=== PATIENT | female | born 1985 | race Two or more races ===

== ENCOUNTER 2017-11-16 10:35 | Emergency (ER) | payer MEDICAID ==
[~2017-11-16] VITALS: Ht 167.6 cm; Wt 105.2 kg
[~2017-11-16 10:35] MED LIST: ALBUAER3 IN; AMOX-263 PO; IBUP800T24 PO; METH4PAK PO; NORPTMEDS CO; PRED-188 PO; PSEU120T2 PO; [UNRECOGNIZED DRUG - CODE] PO
[2017-11-16 11:41] LABS: Basophils # (auto) 0 uL; Basophils % (auto) 0.2 % (0.0-2.0); Eosinophils # (auto) 0.1 uL; Eosinophils % (auto) 0.8 % (0.0-7.0); Hematocrit 40.6 % (36.0-46.0); Hemoglobin 13.8 g/dL (12.2-16.2); Lymphocytes # (auto) 1.7 uL; Lymphocytes % (auto) 22.6 % (10.0-50.0); Mean Corpuscular Hemoglobin 29.6 pg (28.0-32.0); Mean Corpuscular Volume 87.1 fL (80.0-100.0); Monocytes # (auto) 0.3 uL; Monocytes % (auto) 4.3 % (0.0-12.0); Neutrophils # (auto) 5.5 uL; Neutrophils % (auto) 72.1 % (37.0-80.0); Nucleated Red Blood Cells % 0.1 %; Platelet Count (auto) 188 10^3/uL (140-450); Red Blood Cells 4.66 10^6/uL (4.0-5.20); Red Cell Distribution Width 14.6 % (11.8-14.3); White Blood Cell 7.6 10^3/uL (4.4-10.8)
[2017-11-16 11:44] LABS: Urine Bacteria NONE SEEN /hpf (None Seen); Urine Blood Negative /uL (Negative); Urine Mucus FEW (None Seen); Urine Specific Gravity 1.026 (1.001-1.035); Urine WBC 2 /hpf (0 - 5)
[2017-11-16 11:52] LABS: Albumin 3.4 g/dL (3.4-5.0); BUN/Creatinine Ratio 7.5; Bilirubin, Total 0.6 mg/dL (0.2-1.0); Calcium 8.9 mg/dL (8.5-10.1); Potassium 3.8 mmol/L (3.5-5.1); Total Protein 7.8 g/dL (6.4-8.2)
[2017-11-16 13:56] VITALS: BP 145/76
== END 2017-11-16 14:00 | disposition home or self-care (01) ==
LOC: ER 10:35
DX: O20.0 Threatened abortion (principal); Z3A.10 10 weeks gestation of pregnancy
CPT/HCPCS: 36415; 76801; 80053; 81001; 84702; 85025

== ENCOUNTER 2017-12-08 23:43 | Emergency (ER) | payer MEDICAID ==
[~2017-12-08] VITALS: Ht 167.6 cm; Wt 101.2 kg
[2017-12-09 01:16] LABS: Urine Amorphous Crystal FEW /hpf (None Seen); Urine Bacteria MANY /hpf (None Seen); Urine Blood Negative /uL (Negative); Urine Specific Gravity 1.028 (1.001-1.035); Urine WBC 183 /hpf (0 - 5); Urine WBC Clumps PRESENT /hpf (None Seen)
[2017-12-09 02:27] LABS: Basophils # (auto) 0 uL; Basophils % (auto) 0.5 % (0.0-2.0); Eosinophils # (auto) 0.1 uL; Eosinophils % (auto) 1.3 % (0.0-7.0); Hematocrit 36.7 % (36.0-46.0); Hemoglobin 12.8 g/dL (12.2-16.2); Lymphocytes # (auto) 1.4 uL; Lymphocytes % (auto) 17.2 % (10.0-50.0); Mean Corpuscular Hemoglobin 30.4 pg (28.0-32.0); Mean Corpuscular Hgb Conc. 34.8 g/dL (32.0-36.0); Mean Corpuscular Volume 87.2 fL (80.0-100.0); Monocytes # (auto) 0.5 uL; Monocytes % (auto) 6.1 % (0.0-12.0); Neutrophils # (auto) 6.2 uL; Neutrophils % (auto) 74.9 % (37.0-80.0); Platelet Count (auto) 177 10^3/uL (140-450); Red Blood Cells 4.21 10^6/uL (4.0-5.20); Red Cell Distribution Width 14.7 % (11.8-14.3); White Blood Cell 8.3 10^3/uL (4.4-10.8)
[2017-12-09 02:46] LABS: Albumin 3.3 g/dL (3.4-5.0); Calcium 8.7 mg/dL (8.5-10.1); Magnesium 2.1 mg/dL (1.6-2.6); Potassium 3.7 mmol/L (3.5-5.1)
[2017-12-09 02:49] LABS: Bilirubin, Total 0.9 mg/dL (0.2-1.0); Total Protein 7.5 g/dL (6.4-8.2)
[2017-12-09] MEDS ORDERED: SODIUM CHLORIDE 0.9% 1,000 ML IV ONE (06:00)
[2017-12-09] MEDS ORDERED: SODIUM CHLORIDE 0.9% 1,000 ML IVB ONE (06:56)
[2017-12-09] MEDS ORDERED: cefTRIAXone 1GM/10ml IVPUSH 10 ML IV ONE (07:00)
[2017-12-09] MEDS ORDERED: ONDANSETRON HCL 4 MG/2 ML VIAL IV ONE (07:00)
[2017-12-09 10:50] VITALS: BP 137/58
== END 2017-12-09 11:19 | disposition home or self-care (01) ==
LOC: ER 23:52
DX: O23.42 Unspecified infection of urinary tract in pregnancy, second trimester (principal); O21.9 Vomiting of pregnancy, unspecified; Z79.899 Other long term (current) drug therapy; Z3A.12 12 weeks gestation of pregnancy
CPT/HCPCS: 36415; 76801; 80053; 81001; 82150; 83690; 83735; 84702; 85025; 96361; 96374; 96375; 99285; J2405; J7030

== ENCOUNTER 2022-07-21 00:52 | Emergency (ER) | payer MEDICAID ==
[~2022-07-21] VITALS: Ht 167.6 cm; Wt 98.5 kg
[~2022-07-21 00:52] MED LIST changes: -IBUP800T24 PO; +IBUP800T27 PO
[2022-07-21 01:16] VITALS: BP 170/65
[2022-07-21 02:22] LABS: Basophils # (auto) 0.1 10 ^3/uL (0-0.2); Basophils % (auto) 1.1 % (0.0-2.0); Eosinophils # (auto) 0.1 10 ^3/uL (0-0.8); Eosinophils % (auto) 1.3 % (0.0-7.0); Hematocrit 37.1 % (36.0-46.0); Hemoglobin 12.8 g/dL (12.2-16.2); Lymphocytes # (auto) 2.4 10 ^3/uL (0.4-5.4); Lymphocytes % (auto) 37.8 % (10.0-50.0); Mean Corpuscular Hemoglobin 28.9 pg (28.0-32.0); Mean Corpuscular Hgb Conc. 34.6 g/dL (32.0-36.0); Mean Corpuscular Volume 83.5 fL (80.0-100.0); Monocytes # (auto) 0.4 10 ^3/uL (0-1.3); Monocytes % (auto) 5.9 % (0.0-12.0); Neutrophils # (auto) 3.4 10 ^3/uL (1.6-8.6); Neutrophils % (auto) 53.9 % (37.0-80.0); Nucleated Red Blood Cells % 0.3 %; Red Blood Cells 4.44 10^6/uL (4.0-5.20); Red Cell Distribution Width 15.9 % (11.8-14.3); White Blood Cell 6.3 10^3/uL (4.4-10.8)
[2022-07-21 02:43] LABS: Albumin 3.8 g/dL (3.4-5.0); Calcium 8.7 mg/dL (8.5-10.1); Potassium 4.2 mmol/L (3.5-5.1)
[2022-07-21 02:46] LABS: Bilirubin, Total 0.7 mg/dL (0.2-1.0); Total Protein 7.7 g/dL (6.4-8.2)
== END 2022-07-21 06:19 | disposition left against medical advice (07) ==
LOC: ER 00:52
DX: R51.9 Headache, unspecified (principal); I10 Essential (primary) hypertension; Z53.21 Procedure and treatment not carried out due to patient leaving prior to being seen by health care provider
CPT/HCPCS: 36415; 80053; 85025

== ENCOUNTER 2025-10-11 01:22 | Inpatient (IN) | payer MEDICAID, OTHER ==
[~2025-10-11] VITALS: Ht 167.6 cm; Wt 109.0 kg
[~2025-10-11 01:22] MED LIST changes: +IBUP-1456 PO; -IBUP800T27 PO
[2025-10-11] MEDS: MORPHINE SULFATE 4 MG/ML SYR/VIAL IV ONE (01:45)
[2025-10-11 02:03] LABS: Hematocrit 39.2 % (36.0-46.0); Hemoglobin 12.7 g/dL (12.2-16.2); Mean Corpuscular Hemoglobin 25.4 pg (28.0-32.0); Mean Corpuscular Volume 78.4 fL (80.0-100.0); Nucleated Red Blood Cells % 0.1 %
--- NOTE | 2025-10-11 02:13 | ED.PDOC ---
GI ASSESSMENT HPI Comments 40-year-old female who came to ER for abdominal pain. She is status post gastric sleeve, for eating spicy food earlier she started having burning epigastric abdominal pain radiating to the back, persistent, take her to come to the emergency room Chief Complaint: Abdominal Pain Time Seen by MD: 02:13 Reviewed Notes: Nurses Notes Allergies: Coded Allergies: NO KNOWN ALLERGIES (Unverified , 10/13/13) Home Meds Active Scripts Prednisone (PREDNISONE) 20 Mg Tb, 60 MG PO DAILY, #15 TAB Prov:MARIA BARROW N.P. 12/01/13 Albuterol Sulfate (VENTOLIN MDI) 90 Mcg Ih, 2 PUFF IN Q6HP PRN, #1 AER Prov:MARIA BARROW N.P. 12/01/13 Clarithromycin (Biaxin) 500 Mg Tab, 500 MG PO BID, #20 TAB Prov:MARIA BARROW N.P. 12/01/13 Ibuprofen (Ibuprofen) 800 Mg Tab, 800 MG PO Q6HP PRN, #60 MG Prov:MARIA BARROW N.P. 10/13/13 Methylprednisolone (Medrol Dosepak) 4 Mg Giovanni, 4 MG PO UD, #1 PACK Prov:MARIA BARROW N.P. 10/13/13 Pseudoephedrine (Sudafed 12 Hour) 120 Mg Tab, 120 MG PO BID, #30 TAB Prov:MARIA BARROW N.P. 10/13/13 Amoxicillin & Pot Clavulanate (Augmentin) 875 Mg Tab, 875 MG PO BID, #20 TAB Prov:MARIA BARROW N.P. 10/13/13 Reported Medications No Reported Medication (NO REPORTED MEDICATION) Ea, 0 CO UNK, EA PATIENT HAS NO REPORTED MEDICATIONS 12/01/13 Information Source: Patient Mode of Arrival: EMS Past Medical History PAST MEDICAL HISTORY: Denies Surgical History (Other): Gastric sleeve [employer] History: Denies all [employer] Hx Family History Family History: Reviewed,noncontributory to illness Social History Smoker: Non-Smoker Alcohol: Denies ETOH Use Drugs: Denies Drug Use Lives In: Home Constitutional: denies: chills, diaphoresis, fatigue, fever, malaise, sweats, weakness, others EENTM: denies: blurred vision, double vision, ear bleeding, ear discharge, ear drainage, ear pain, ear ringing, eye pain, eye redness, hearing loss, mouth pain, mouth swelling, nasal discharge, nose bleeding, nose congestion, nose pain, photophobia, tearing, throat pain, throat swelling, voice changes, others Respiratory: denies: cough, hemoptysis, orthopnea, SOB at rest, shortness of breath, SOB with excertion, stridor, wheezing, others Cardiovascular: denies: chest pain, dizzy spells, diaphoresis, Dyspnea on exertion, edema, irregular heart beat, left arm pain, lightheadedness, palpitations, PND, syncope, others Gastrointestinal: reports: abdominal pain; denies: abdomen distended, blood streaked bowels, constipated, diarrhea, dysphagia, difficulty swallowing, h ematemesis, melena, nausea, poor appetite, poor fluid intake, rectal bleeding, rectal pain, vomiting, others Genitourinary: denies: abnormal vagina bleeding, burning, dyspareunia, dysuria, flank pain, frequency, hematuria, incontinence, pain, , vagina discharge, urgency, others Neurological: denies: dizziness, fainting, headache, left sided numbness, left sided weakness, numbness, paresthesia, pre-existing deficit, right sided numbness, right sided weakness, seizure, speech problems, tingling, tremors, weakness, others Musculoskeletal: denies: back pain, gout, joint pain, joint swelling, muscle pain, muscle stiffness, neck pain, others Integumetry: denies: bruises, change in color, change in hair/nails, dryness, laceration, lesions, lumps, rash, wounds, others Allergic/Immunocompromised: denies: Difficulty Healing, Frequent Infections, Hives, Itching, others Hematologic/Lymphatic: denies: anemia, blood clots, easy bleeding, easy bruising, swollen glands, others Endocrine: denies: excessive hunger, excessive sweating, excessive thirst, excessive urination, flushing, intolerance to cold, intolerance to heat, unexplained weight gain, unexplained weight loss, others Psychiatric: denies: anxiety, bipolar disorder, depression, hopeless, panic disorder, schizophrenia, sleepless, suicidal, others Physical Exam General Appearance: No Apparent Distress, Normal HEENT: Normal ENT Inspection, Pharynx Normal, TMs Normal Neck: Full Range of Motion, Non-Tender, Normal, Normal Inspection Respiratory: Chest Non-Tender, Lungs Clear, No Accessory Muscle Use, No Respiratory Distress, Normal Breath Sounds Cardiovascular: No Edema, No JVD, No Murmur, No Gallop, Normal Peripheral Pulses, Regular Rate/Rhythm Breast Exam: Deferred Gastrointestinal: Epigastric, No Organomegaly, No Pulsatile Mass, Normal Bowel Sounds, Soft, Tenderness Genitalia: Deferred Pelvic: Deferred Rectal: Deferred Extremities: No calf tenderness, Normal capillary refill, Normal inspection, Normal range of motion, Non-tender, No pedal edema Musculoskeletal : Apperance: Normal Neurologic: Alert, harbor pilot II-XII nml as Tested, No Motor Deficits, Normal Affect, Normal Mood, No Sensory Deficits Cerebellar Function: Normal Reflexes: Normal Skin: Dry, Normal Color, Warm Lymphatic: No Adenopathy Was a procedure done? Was a procedure done?: No GI differential Dx Differential Diagnosis: Cholecystitis, Gastritis/PUD, Gastroenteritis, Pancreatitis, UTI X-Ray, Labs, Meds, VS Vital Signs Date Time Temp Pulse Resp B/P (MAP) Pulse Ox O2 Delivery O2 Flow Rate FiO2 10/11/25 01:22 98.3 69 18 148/79 96 98.3 Lab Test 10/11/25 04:33 10/11/25 01:56 Range/Units Urine Color Yellow Yellow Urine Clarity Turbid H Clear Urine pH 8.0 5.0-9.0 Urine Specific [place] 1.027 1.001-1.035 Urine Protein Trace H Negative Urine Ketones 1+ H Negative Urine Blood Negative Negative /uL Urine Nitrite Negative Negative Urine Bilirubin Negative Negative Urine Urobilinogen 8 H Negative mg/dL Urine Leukocyte Esterase Negative Negative /uL Urine RBC 1 0 - 4 /hpf Urine Microscopic WBC < 1 0-5 /HPF Urine Squamous Epithelial Cells Few <5 /hpf Urine Amorphous Crystals Few None Seen /hpf Urine Bacteria None seen None Seen /hpf Urine Mucus Few None Seen Urine Yeast (Budding) Moderate None Seen /hpf Urine Glucose Normal Normal mg/dL Urine Test Negative Negative White Blood Count 8.9 4.4-10.8 10^3/uL Red Blood Count 5.00 4.0-5.20 10^6/uL Hemoglobin 12.7 12.2-16.2 g/dL Hematocrit 39.2 36.0-46.0 % Mean Corpuscular Volume 78.4 L 80.0-100.0 fL Mean Corpuscular Hemoglobin 25.4 L 28.0-32.0 pg Mean Corpuscular Hemoglobin Concent 32.4 32.0-36.0 g/dL Red Cell Distribution Width 16.0 H 11.8-14.3 % Platelet Count 232 140-450 10^3/uL Mean Platelet Volume 9.2 6.9-10.8 fL Neutrophils (%) (Auto) 82.2 H 37.0-80.0 % Lymphocytes (%) (Auto) 13.2 10.0-50.0 % Monocytes (%) (Auto) 4.2 0.0-12.0 % Eosinophils (%) (Auto) 0.2 0.0-7.0 % Basophils (%) (Auto) 0.2 0.0-2.0 % Neutrophils # (Auto) 7.3 1.6-8.6 10 ^3/uL Lymphocytes # (Auto) 1.2 0.4-5.4 10 ^3/uL Monocytes # (Auto) 0.4 0-1.3 10 ^3/uL Eosinophils # (Auto) 0 0-0.8 10 ^3/uL Basophils # (Auto) 0 0-0.2 10 ^3/uL Nucleated Red Blood Cells 0.1 % Sodium Level 140 136-145 mmol/L Potassium Level 3.8 3.5-5.1 mmol/L Chloride Level 108 H 98-107 mmol/L Carbon Dioxide Level 20 20-31 mmol/L Anion Gap 12 5-15 Blood Urea Nitrogen 13 9-23 mg/dL Creatinine 0.73 0.550-1.02 mg/dL Glomerular Filtration Rate Calc 107 >90 mL/min BUN/Creatinine Ratio 17.8 10.0-20.0 Serum Glucose 120 H 74-106 mg/dL Calcium Level 9.6 8.7-10.4 mg/dL Total Bilirubin 1.4 H 0.2-1.0 mg/dL Aspartate Amino Transferase (AST) 250 H 13-40 U/L Alanine Aminotransferase (ALT) 170 H 7-40 U/L Alkaline Phosphatase 234 H 46-116 U/L Total Protein 8.1 5.7-8.2 g/dL Albumin 4.8 3.2-4.8 g/dL Lipase 26 12-53 U/L Current Medications Medications (Trade) Dose Ordered Sig/Sun Route Start Time Stop Time Status Last Admin Ondansetron HCl (Zofran) 4 mg ONCE ONCE IV 10/11/25 01:45 10/11/25 01:46 DC 10/11/25 03:58 Sodium Chloride 1,000 ml @ 1,000 mls/hr Q1H ONCE IVB 10/11/25 01:45 10/11/25 02:44 DC 10/11/25 04:11 Famotidine (Pepcid Injection) 20 mg ONCE ONCE IV 10/11/25 01:45 10/11/25 01:46 DC 10/11/25 03:58 Time of 1ST Reevaluation: 02:11 Reevaluation 1ST: Unchanged Patient Education/Counseling: Diagnosis, Treatment Family Education/Counseling: No Family Present SEPSIS Sepsis Screen Date sepsis recognized/suspect: Oct 11, 2025 Time Sepsis recognized/suspect: 012 Recent Procedure: No On Antibiotic Therapy: No Respiratory Rate >20: No Heart Rate >90: No Temp<36 C (96.8 F) or >38.3 C: No SBP <90 or MAP <65 mmHG: No New Acute Mental Status Change: No Is the patient on CPAP, BIPAP,: No Physician Orders Ct Ab Pel With Iv Con Only (10/11/25 01:44) Gallbladder (10/11/25 05:57) Vital Signs Date Time Temp Pulse Resp B/P (MAP) Pulse Ox O2 Delivery O2 Flow Rate FiO2 10/11/25 01:22 98.3 69 18 148/79 96 98.3 Laboratory Tests Test 10/11/25 01:56 White Blood Count 8.9 10^3/uL (4.4-10.8) Medications Medications Dose Ordered Sig/Sun Route Start Time Stop Time Status Last Admin Dose Admin Famotidine 20 mg ONCE ONCE IV 10/11/25 01:45 10/11/25 01:46 DC 10/11/25 03:58 Ondansetron HCl 4 mg ONCE ONCE IV 10/11/25 01:45 10/11/25 01:46 DC 10/11/25 03:58 Sodium Chloride 1,000 ml @ 1,000 mls/hr Q1H ONCE IVB 10/11/25 01:45 10/11/25 02:44 DC 10/11/25 04:11 Departure 1 Departure Time of Disposition: 07:00 Impression: Primary Impression: Intractable abdominal pain Additional Impression: H/O gastric sleeve Disposition: 09 ADMITTED INPATIENT Admit to: Med Surg Condition: Guarded Comments 40-year-old female with a intractable abdominal pain. She did have a gastric sleeve surgery in [facility]. I ordered a CT of the abdomen and pelvis and it looks like there might be a gallstone at the neck of the gallbladder. LFTs are elevated. Patient is still having pain. I ordered a gallbladder ultrasound. Periods patient will need to be admitted for supportive care and further workup. Critical Care Note Critical Care Time?: Yes (35 min-critical care time only) Critical care comment: Total critical care time: Approximately 36 minutes Due to a high probability of clinically significant, life threatening deterioration, the patient required my highest level of preparedness to intervene emergently and I personally spent this critical care time directly and personally managing the patient. This critical care time included obtaining a history; examining the patient; pulse oximetry; ordering and review of studies; arranging urgent treatment with development of a management plan; evaluation of patient's response to treatment; frequent reassessment; and, discussions with other providers. This critical care time was performed to assess and manage the high probability of imminent, life-threatening deterioration that could result in multi-organ failure. It was exclusive of separately billable procedures and treating other patients. Stability Stability form required: No Heart Score Heart Score: Heart Score Response (Comments) Value History N/A 0 EKG N/A 0 Age N/A 0 Risk Factors N/A 0 Troponin N/A 0 Total 0 I personally scribed for AL BISHOP MD ([email or web address]) on 10/11/25 at 02:13. Electronically submitted by Mason Benitez ([email or web address]). AL BISHOP MD Oct 11, 2025 02:13
[2025-10-11 02:20] LABS: Albumin 4.8 g/dL (3.2-4.8); Anion Gap 12 (5-15); BUN/Creatinine Ratio 17.8 (10.0-20.0); Blood Urea Nitrogen 13 mg/dL (9-23); Calcium 9.6 mg/dL (8.7-10.4); Carbon Dioxide 20 mmol/L (20-31); Lipase 26 U/L (12-53); Potassium 3.8 mmol/L (3.5-5.1); Sodium 140 mmol/L (136-145); Total Protein 8.1 g/dL (5.7-8.2)
[2025-10-11 02:47] LABS: Alanine Aminotransferase 170 U/L (7-40); Alkaline Phosphatase 234 U/L (46-116); Bilirubin, Total 1.4 mg/dL (0.2-1.0); Chloride 108 mmol/L (98-107); Glucose 120 mg/dL (74-106)
[2025-10-11] MEDS: ONDANSETRON HCL 4 MG/2 ML VIAL IV ONE (03:58)
[2025-10-11] MEDS: FAMOTIDINE (10MG/ML) 2ML VL IV ONE (03:58)
[2025-10-11] MEDS: SODIUM CHLORIDE 0.9% 1,000 ML IVB ONE (04:11)
[2025-10-11 05:27] LABS: Urine Amorphous Crystal FEW /hpf (None Seen); Urine Budding Yeast MODERATE /hpf (None Seen); Urine Protein, UAD TRACE (Negative)
[2025-10-11] MEDS: IOHEXOL 300 MG/ML 100ML BOTTLE IJ ONE (06:01)
--- NOTE | 2025-10-11 07:12 | DVH ---
EXAM: CT CT AB PEL WITH IV CON ONLY History: abd pain COMPARISON: None TECHNIQUE: Multidetector spiral CT of the abdomen and pelvis was performed from lung bases to pubic symphysis. Intravenous contrast was administered during this examination. Portal venous imaging was obtained. Axial, coronal and sagittal multiplanar reformats were performed by the technologist on a separate workstation. Radiation Dose : 1. Abdomen/Pelvis: CTDIvol 26.21mGy, DLP 1625.37 mGy*cm. CONTRAST: Type of contrast: Omnipaque Contrast injected: 100ml FINDINGS: Lung Bases: No acute or significant lung base finding. Normal heart size. No pleural or pericardial effusion. Liver: Hepatomegaly measuring up to 21 cm. Gallbladder and Biliary Tree: Cholelithiasis with small amount of pericholecystic fluid. Spleen: Unremarkable Pancreas: The pancreas is normal in appearance without focal lesions or abnormal enhancement. Adrenal Glands: Unremarkable Kidneys: No hydronephrosis. Bladder: Unremarkable Bowel: Postsurgical changes are seen around the stomach. Small bowel and colon are normal in caliber and distribution. Normal appendix is visualized in the right lower quadrant without findings of appendicitis. Ascites: Absent Lymphadenopathy: No mesenteric, retroperitoneal or periportal lymphadenopathy. Abdominal Wall and Mesentery: Trace fat containing umbilical hernia. Vasculature: The visualized abdominal aorta is normal in size and caliber. Abdominal and pelvic vessels demonstrate normal enhancement. Pelvic Organs: Unremarkable Musculoskeletal: No aggressive focal bony lesions, acute fractures or dislocation. IMPRESSION: 1. Cholelithiasis with small amount of pericholecystic fluid. Recommend correlation with right upper quadrant ultrasound. 2. Postsurgical changes are seen around the stomach. Radiation optimization: All CT scans at this facility use at least one of these dose optimization techniques: automated exposure control mA and/or kV adjustment per patient size (includes targeted exams where dose is matched to clinical indication) or iterative reconstruction.
--- NOTE | 2025-10-11 08:42 | DVH ---
EXAM: US GALLBLADDER HISTORY: RUQ pain COMPARISON: None TECHNIQUE: Multiple longitudinal and transverse sonographic images of the abdomen were obtained. Doppler was applied as indicated. FINDINGS: [PANCREAS]: The visualized portions of the pancreas are unremarkable. [AORTA]: Normal [LIVER]: 16.6 cm. increased echogenicity. There is no focal hepatic mass lesion detected. [GALLBLADDER]: Gallbladder wall measures 1.1 cm. There is no gallbladder sludge or shadowing gallstone. There is no sonographic Terry sign. [BILIARY TREE]: Common bile duct not well visualized. no intrahepatic biliary ductal dilatation. [ASCITES]: No free fluid is demonstrated. [VESSELS]: The main portal vein is patent on color Doppler evaluation. The inferior vena cava is patent on color Doppler evaluation. [RIGHT KIDNEY]: 10.6 cm. normal cortical echogenicity and normal contour. No hydronephrosis. IMPRESSION: 1. Heterogeneously echogenic liver, which is a nonspecific finding and may represent hepatic steatosis and/or other underlying hepatocellular pathology. 2. Edematous gallbladder wall thickening with intramural wall edema of indeterminate etiology. Consider follow up CT for further evaluation.
[2025-10-11] MEDS ORDERED: DOCUSATE SOD 100 MG CAP PO PRN (09:30)
[2025-10-11] MEDS ORDERED: NITROGLYCERIN 0.4 MG SL TAB SL PRN (09:30)
[2025-10-11] MEDS ORDERED: TEMAZEPAM 15 MG CAP PO PRN (09:30)
[2025-10-11] MEDS ORDERED: MORPHINE SULFATE 4 MG/ML SYR/VIAL IV PRN (09:45)
[2025-10-11] MEDS: PIPERACILLIN-TAZOB 3.375GM 100 ML IV ONE ×3 (09:59→23:41)
[2025-10-11] MEDS: PANTOPRAZOLE 40 MG/10 ML VIAL INJ IV ONE (09:59)
[2025-10-11 11:33] VITALS: PULSE 70; RESP 18; O2SAT 98
[2025-10-11] MEDS: SODIUM CHLORIDE 0.9% 1,000 ML IV SCH (11:39)
[2025-10-11] MEDS: PIPERACILLIN-TAZOB 3.375GM 100 ML IV SCH (12:32)
--- NOTE | 2025-10-11 12:57 | DVHINCON2 ---
Consultation - Surgical Date Seen: Oct 11, 2025 Referring Physician Reason for Consultation Acute cholecystitis History of Present Illness History of Present Illness Mrs. Chua is a 40-year-old female who presents to the hospital with epigastric and right upper quadrant pain that started yesterday at 7:00 p.m.. Pain has continued to get worse and decided to come to the ED, since arrival pain has subsided a bit. Pain is associated with nausea and vomiting. States that this has never happened to her before. Denies fevers, chills, changes in urinary or stooling habits, acholic stools. Past Medical/Surgical History Past Medical/Surgical History PMH cholelithiasis PSH gastric sleeve on July 31, 2025, x2 Family and Social History Family and Social History Family history noncontributory ETOH T Ob drugs denies Allergies and medications Allergies: Coded Allergies: NO KNOWN ALLERGIES (Unverified , 10/13/13) Home Meds Active Scripts Prednisone (PREDNISONE) 20 Mg Tb, 60 MG PO DAILY, #15 TAB Prov:MARIA BARROW N.P. 12/01/13 Albuterol Sulfate (VENTOLIN MDI) 90 Mcg Ih, 2 PUFF IN Q6HP PRN, #1 AER Prov:MARIA BARROW N.P. 12/01/13 Clarithromycin (Biaxin) 500 Mg Tab, 500 MG PO BID, #20 TAB Prov:MARIA BARROW N.P. 12/01/13 Ibuprofen (Ibuprofen) 800 Mg Tab, 800 MG PO Q6HP PRN, #60 MG Prov:MARIA BARROW N.P. 10/13/13 Methylprednisolone (Medrol Dosepak) 4 Mg Giovanni, 4 MG PO UD, #1 PACK Prov:MARIA BARROW N.P. 10/13/13 Pseudoephedrine (Sudafed 12 Hour) 120 Mg Tab, 120 MG PO BID, #30 TAB Prov:MARIA BARROW N.P. 10/13/13 Amoxicillin & Pot Clavulanate (Augmentin) 875 Mg Tab, 875 MG PO BID, #20 TAB Prov:MARIA BARROW N.P. 10/13/13 Reported Medications No Reported Medication (NO REPORTED MEDICATION) Ea, 0 CO UNK, EA PATIENT HAS NO REPORTED MEDICATIONS 12/01/13 Review of systems Review of Systems: Deferred Examination Vital signs Vital Signs Date Time Temp Pulse Resp B/P (MAP) Pulse Ox O2 Delivery O2 Flow Rate FiO2 10/11/25 11:33 98.3 70 18 136/71 (92) 98 98.3 10/11/25 11:33 Room Air* 0 21 Medications Current Medications Medications (Trade) Dose Ordered Sig/Sun Route PRN Reason Start Time Stop Time Status Last Admin Sodium Chloride 1,000 ml @ 120 mls/hr Q8H20M IV 10/11/25 09:30 10/11/25 11:39 Temazepam (Restoril) 15 mg QHSP PRN PO FOR INSOMNIA 10/11/25 09:30 Ondansetron HCl (Zofran) 4 mg Q4HP PRN IV NAUSEA / VOMITING 10/11/25 09:30 Docusate Sodium (Colace Capsule) 100 mg BIDPRN PRN PO FOR CONSTIPATION 10/11/25 09:30 Morphine Sulfate 2 mg Q4HPRN PRN IV SEVERE PAIN (7-10 PAIN SCALE) 10/11/25 09:45 Nitroglycerin (Ntrostat Sublingual) 0.4 mg Q5MINP PRN SL FOR CHEST PAIN 10/11/25 09:30 Piperacillin Sod/ Tazobactam Sod 100 ml @ 25 mls/hr Q6HR IV 10/11/25 12:00 10/11/25 12:32 Pantoprazole Sodium (Protonix) 40 mg DAILY IV 10/12/25 10:00 Laboratory Labs Test 10/11/25 04:33 10/11/25 01:56 Range/Units Urine Color Yellow Yellow Urine Clarity Turbid H Clear Urine pH 8.0 5.0-9.0 Urine Specific [place] 1.027 1.001-1.035 Urine Protein Trace H Negative Urine Ketones 1+ H Negative Urine Blood Negative Negative /uL Urine Nitrite Negative Negative Urine Bilirubin Negative Negative Urine Urobilinogen 8 H Negative mg/dL Urine Leukocyte Esterase Negative Negative /uL Urine RBC 1 0 - 4 /hpf Urine Microscopic WBC < 1 0-5 /HPF Urine Squamous Epithelial Cells Few <5 /hpf Urine Amorphous Crystals Few None Seen /hpf Urine Bacteria None seen None Seen /hpf Urine Mucus Few None Seen Urine Yeast (Budding) Moderate None Seen /hpf Urine Glucose Normal Normal mg/dL Urine Test Negative Negative White Blood Count 8.9 4.4-10.8 10^3/uL Red Blood Count 5.00 4.0-5.20 10^6/uL Hemoglobin 12.7 12.2-16.2 g/dL Hematocrit 39.2 36.0-46.0 % Mean Corpuscular Volume 78.4 L 80.0-100.0 fL Mean Corpuscular Hemoglobin 25.4 L 28.0-32.0 pg Mean Corpuscular Hemoglobin Concent 32.4 32.0-36.0 g/dL Red Cell Distribution Width 16.0 H 11.8-14.3 % Platelet Count 232 140-450 10^3/uL Mean Platelet Volume 9.2 6.9-10.8 fL Neutrophils (%) (Auto) 82.2 H 37.0-80.0 % Lymphocytes (%) (Auto) 13.2 10.0-50.0 % Monocytes (%) (Auto) 4.2 0.0-12.0 % Eosinophils (%) (Auto) 0.2 0.0-7.0 % Basophils (%) (Auto) 0.2 0.0-2.0 % Neutrophils # (Auto) 7.3 1.6-8.6 10 ^3/uL Lymphocytes # (Auto) 1.2 0.4-5.4 10 ^3/uL Monocytes # (Auto) 0.4 0-1.3 10 ^3/uL Eosinophils # (Auto) 0 0-0.8 10 ^3/uL Basophils # (Auto) 0 0-0.2 10 ^3/uL Nucleated Red Blood Cells 0.1 % Sodium Level 140 136-145 mmol/L Potassium Level 3.8 3.5-5.1 mmol/L Chloride Level 108 H 98-107 mmol/L Carbon Dioxide Level 20 20-31 mmol/L Anion Gap 12 5-15 Blood Urea Nitrogen 13 9-23 mg/dL Creatinine 0.73 0.550-1.02 mg/dL Glomerular Filtration Rate Calc 107 >90 mL/min BUN/Creatinine Ratio 17.8 10.0-20.0 Serum Glucose 120 H 74-106 mg/dL Calcium Level 9.6 8.7-10.4 mg/dL Total Bilirubin 1.4 H 0.2-1.0 mg/dL Aspartate Amino Transferase (AST) 250 H 13-40 U/L Alanine Aminotransferase (ALT) 170 H 7-40 U/L Alkaline Phosphatase 234 H 46-116 U/L Total Protein 8.1 5.7-8.2 g/dL Albumin 4.8 3.2-4.8 g/dL Lipase 26 12-53 U/L Examination: GENERAL:Normal (AAO x3), HEENT:Normal (No icterus, neck supple), LUNGS:Normal (Nonlabored breathing with symmetric expansion), ABDOMEN:Abnormal (Large pannus, nondistended, soft, depressible, laparoscopic scars, right upper quadrant tenderness with positive Terry's sign), SKIN:Normal (No jaundice) Problem List/Assessment/Plan Problems: (1) Acute cholecystitis due to biliary calculus Assessment and Plan Mrs. Chua is a 40-year-old female who presents with the acute cholecystitis. CT shows pericholecystic fluid, ultrasound shows multiple stones and gallbladder wall edema. Does not have leukocytosis, but does have transaminitis. Lipase within normal level. Patient will benefit from laparoscopic cholecystectomy. Procedure, risks, benefits, complications, and alternatives discussed with the patient. She would like to proceed with surgery. 1. On-call to OR tomorrow a.m. for laparoscopic cholecystectomy 2. NPO at midnight 3. Zosyn 4. Pain and nausea control Plan discussed with Plan discussed with: Patient Visit Coding Surgery Date of Service if different f: Oct 11, 2025 Billing Provider: LEONEL STEWARD MD Surgery Visit Codes: 34897 - INP CONSULT <110 MIN LEONEL STEWARD MD Oct 11, 2025 12:57
[2025-10-11 14:15] VITALS: BP 110/56; PULSE 65; RESP 18; TEMP 98.3; O2SAT 97
--- NOTE | 2025-10-11 14:21 | DVHHP2 ---
History of Present Illness Reason for Visit: abd pain History of Present Illness 40-year-old female with past medical history significant for recent gastric sleeve surgery (performed three months ago) and prior 2, presents with acute right-sided abdominal pain. Patient reports that she had not eaten meat or hot sauce for quite some time following her gastric sleeve but decided to eat both for dinner. Shortly after, she developed sharp, burning right abdominal pain with soreness. She denies vomiting, diarrhea, chest pain, shortness of breath, or tearing sensation in the chest, abdomen, or pelvis. No prior similar episodes reported. In the ED, patient was treated with Pepcid, morphine, normal saline, and Zofran. Laboratory evaluation revealed CBC unremarkable, total bilirubin 1.4, AST 250, ALT 170, and alkaline phosphatase 24. Imaging demonstrated gallstones with pericholecystic fluid, concerning for acute cholecystitis. Ultrasound of the abdomen was ordered. Given clinical presentation, laboratory abnormalities, and imaging findings, acute cholecystitis is suspected. General Surgery (Dr. Ellis) will be consulted. Patient will be kept NPO, started on IV fluids, IV antibiotics, and pain control, and admitted for further management. Past Medical History See HPI above Past Surgical History See HPI above Family History Reviewed, non-contributory to the management of this case. Past Social History The patient lives at home, denies smoking, alcohol or illicit drugs abuse. Review of Systems Constitutional: No: Fever, Chills, Sweats, Weakness, Malaise, Other Eyes: No: Pain, Vision change, Conjunctivae inflammation, Eyelid inflammation, Other, Redness ENT: No: Ear pain, Ear discharge, Nose pain, Nose discharge, Nose congestion, Mouth pain, Mouth swelling, Throat pain, Throat swelling, Other Respiratory: No: Cough, Dry, Shortness of breath, SOB with excertion, Wheezing, Hemoptysis, Pleuritic Pain, Sputum, Wheezing, Other Cardiovascular: No: Chest Pain, Palpitations, Orthopnea, Paroxysmal Noc. Dyspnea, Edema, Lt Headedness, Other Gastrointestinal: Nausea, Vomiting, Abdominal Pain; No: Diarrhea, Constipation, Melena, Hematochezia, Other Genitourinary: No Dysuria, No Frequency, No Incontinence, No Hematuria, No Retention, No Other Musculoskeletal: No: other, neck pain, shoulder pain, arm pain, back pain, hand pain, leg pain, foot pain Skin: No: Rash, Lesions, Jaundice, Bruising, Other Neurological: No: Weakness, Numbness, Incoordination, Change in speech, Confusion, Seizures, Other Allergies: Coded Allergies: NO KNOWN ALLERGIES (Unverified , 10/13/13) Medications Current Medications Medications Dose Ordered Sig/Sun Route Start Time Stop Time Status Last Admin Dose Admin Sodium Chloride 1,000 ml @ 120 mls/hr Q8H20M IV 10/11/25 09:30 10/11/25 11:39 120 MLS/HR Temazepam 15 mg QHSP PRN PO 10/11/25 09:30 Ondansetron HCl 4 mg Q4HP PRN IV 10/11/25 09:30 Docusate Sodium 100 mg BIDPRN PRN PO 10/11/25 09:30 Morphine Sulfate 2 mg Q4HPRN PRN IV 10/11/25 09:45 Nitroglycerin 0.4 mg Q5MINP PRN SL 10/11/25 09:30 Piperacillin Sod/ Tazobactam Sod 100 ml @ 25 mls/hr Q6HR IV 10/11/25 12:00 10/11/25 12:32 25 MLS/HR Pantoprazole Sodium 40 mg DAILY IV 10/12/25 10:00 Exam Vital Signs Vital Signs Date Time Temp Pulse Resp B/P (MAP) Pulse Ox O2 Delivery O2 Flow Rate FiO2 10/11/25 11:33 98.3 70 18 136/71 (92) 98 98.3 10/11/25 11:33 Room Air* 0 21 General Appearance: Alert, Oriented X3, Cooperative, No acute distress HEENT: Atraumatic, PERRLA, EOMI, Mucous membr. moist/pink Respiratory: Clear to auscultation, Normal air movement Cardiovascular: Regular rate, Normal S1, Normal S2, No murmurs Abdominal: Normal bowel sounds, Soft, No hepatospenomegaly, No masses, Other (Right upper quadrant guarding and rebound tenderness) Extremities: No clubbing, No cyanosis, No edema, Normal pulses, No tenderness/swelling Skin: No rashes, No breakdown, No significant lesion Neuro: Normal gait, Normal speech, Strength at 5/5 X4 ext, Normal tone, Sensation intact, Cranial nerves 3-12 NL Psych/Mental Status: Mental status NL, Mood NL Labs/Xrays Gallstones infection pericholecystic fluid right upper quad I reviewed labs, imaging CT scan abdomen pelvis, EKG and all diagnostic studies on this patient from ED records and the medical chart Labs Test 10/11/25 04:33 10/11/25 01:56 Range/Units Urine Color Yellow Yellow Urine Clarity Turbid H Clear Urine pH 8.0 5.0-9.0 Urine Specific [place] 1.027 1.001-1.035 Urine Protein Trace H Negative Urine Ketones 1+ H Negative Urine Blood Negative Negative /uL Urine Nitrite Negative Negative Urine Bilirubin Negative Negative Urine Urobilinogen 8 H Negative mg/dL Urine Leukocyte Esterase Negative Negative /uL Urine RBC 1 0 - 4 /hpf Urine Microscopic WBC < 1 0-5 /HPF Urine Squamous Epithelial Cells Few <5 /hpf Urine Amorphous Crystals Few None Seen /hpf Urine Bacteria None seen None Seen /hpf Urine Mucus Few None Seen Urine Yeast (Budding) Moderate None Seen /hpf Urine Glucose Normal Normal mg/dL Urine Test Negative Negative White Blood Count 8.9 4.4-10.8 10^3/uL Red Blood Count 5.00 4.0-5.20 10^6/uL Hemoglobin 12.7 12.2-16.2 g/dL Hematocrit 39.2 36.0-46.0 % Mean Corpuscular Volume 78.4 L 80.0-100.0 fL Mean Corpuscular Hemoglobin 25.4 L 28.0-32.0 pg Mean Corpuscular Hemoglobin Concent 32.4 32.0-36.0 g/dL Red Cell Distribution Width 16.0 H 11.8-14.3 % Platelet Count 232 140-450 10^3/uL Mean Platelet Volume 9.2 6.9-10.8 fL Neutrophils (%) (Auto) 82.2 H 37.0-80.0 % Lymphocytes (%) (Auto) 13.2 10.0-50.0 % Monocytes (%) (Auto) 4.2 0.0-12.0 % Eosinophils (%) (Auto) 0.2 0.0-7.0 % Basophils (%) (Auto) 0.2 0.0-2.0 % Neutrophils # (Auto) 7.3 1.6-8.6 10 ^3/uL Lymphocytes # (Auto) 1.2 0.4-5.4 10 ^3/uL Monocytes # (Auto) 0.4 0-1.3 10 ^3/uL Eosinophils # (Auto) 0 0-0.8 10 ^3/uL Basophils # (Auto) 0 0-0.2 10 ^3/uL Nucleated Red Blood Cells 0.1 % Sodium Level 140 136-145 mmol/L Potassium Level 3.8 3.5-5.1 mmol/L Chloride Level 108 H 98-107 mmol/L Carbon Dioxide Level 20 20-31 mmol/L Anion Gap 12 5-15 Blood Urea Nitrogen 13 9-23 mg/dL Creatinine 0.73 0.550-1.02 mg/dL Glomerular Filtration Rate Calc 107 >90 mL/min BUN/Creatinine Ratio 17.8 10.0-20.0 Serum Glucose 120 H 74-106 mg/dL Calcium Level 9.6 8.7-10.4 mg/dL Total Bilirubin 1.4 H 0.2-1.0 mg/dL Aspartate Amino Transferase (AST) 250 H 13-40 U/L Alanine Aminotransferase (ALT) 170 H 7-40 U/L Alkaline Phosphatase 234 H 46-116 U/L Total Protein 8.1 5.7-8.2 g/dL Albumin 4.8 3.2-4.8 g/dL Lipase 26 12-53 U/L SEPSIS Sepsis Screen Date sepsis recognized/suspect: Oct 11, 2025 Time Sepsis recognized/suspect: 623 Recent Procedure: No On Antibiotic Therapy: No Respiratory Rate >20: No Heart Rate >90: No Temp<36 C (96.8 F) or >38.3 C: No SBP <90 or MAP <65 mmHG: No New Acute Mental Status Change: No Is the patient on CPAP, BIPAP,: No Physician Orders Admit (10/11/25 09:21) Allergies (10/11/25 09:21) Code Status (10/11/25 09:21) Sodium Chloride 0.9% (10/11/25 09:30) Oxygen Per Hour (10/11/25 09:21) Temazepam (Restoril) (10/11/25 09:30) Ondansetron Hcl (Zofran) (10/11/25 09:30) Docusate Sodium Capsule (Colace Capsule) (10/11/25 09:30) Complete Blood Count (10/12/25 04:00) Comprehensive Metabolic Panel (10/12/25 04:00) Npo (Nothing By Mouth) Diet (10/11/25 Breakfast) Condition: Stable (10/11/25 09:21) BRP (10/11/25 09:21) Sequential Compression Device (10/11/25 ) Nitroglycerin Sublingual (Ntrostat Subli (10/11/25 09:30) Stat Ekg For Chest Pain (10/11/25 09:21) Notify Md Of Changes From Base (10/11/25 09:21) Certified Nursing Assistant Instructor For 24 Hours (10/11/25 09:21) Emergency Dysrhythmia Protocol (10/11/25 09:21) Rhythm Strips Once Every Shift (10/11/25 09:21) Oxygen By Nasal Cannula (10/11/25 09:21) Piperacillin-Tazob 3.375gm (Zosyn 3.375g (10/11/25 12:00) * Surgical Consult (10/11/25 ) Pantoprazole (Protonix) (10/12/25 10:00) Morphine Sulfate Injection (10/11/25 09:45) Bilirubin, Direct (10/12/25 04:00) Type And Screen (10/12/25 04:00) Obtain Consent For: (10/11/25 13:13) Obtain Consent For Anesthesia (10/11/25 13:13) Vital Signs Date Time Temp Pulse Resp B/P (MAP) Pulse Ox O2 Delivery O2 Flow Rate FiO2 10/11/25 11:33 98.3 70 18 136/71 (92) 98 98.3 10/11/25 11:33 70 18 98 Room Air* 0 21 10/11/25 09:10 98.4 68 18 140/66 (90) 97 98.4 10/11/25 06:58 78 16 136/65 10/11/25 06:28 72 16 133/77 10/11/25 06:17 70 20 99 Room Air 10/11/25 06:17 98.3 71 20 133/77 (95) 99 98.3 Medications Medications Dose Ordered Sig/Sun Route Start Time Stop Time Status Last Admin Dose Admin Pantoprazole Sodium 40 mg ONCE ONCE IV 10/11/25 09:30 10/11/25 09:34 DC 10/11/25 09:59 40 MG Piperacillin Sod/ Tazobactam Sod 100 ml @ 25 mls/hr Q6HR IV 10/11/25 12:00 10/11/25 12:32 25 MLS/HR Piperacillin Sod/ Tazobactam Sod 100 ml @ 100 mls/hr ONCE ONCE IV 10/11/25 09:30 10/11/25 10:29 DC 10/11/25 09:59 100 MLS/HR Sodium Chloride 1,000 ml @ 120 mls/hr Q8H20M IV 10/11/25 09:30 10/11/25 11:39 120 MLS/HR Assessment/Plan Assessment/Plan 40-year-old female with recent gastric sleeve surgery presenting with acute right-sided abdominal pain, transaminitis, gallstones with pericholecystic fluid, concerning for acute cholecystitis, requiring surgical evaluation and inpatient management. Acute cholecystitis Gallstones with pericholecystic fluid Keep NPO IV fluids IV antibiotics General Surgery consult (Dr. Ellis) Pain control with IV analgesia Monitor for worsening abdominal exam acute Abdominal pain Pain management with IV medications Antiemetics as needed acute Transaminitis Likely biliary etiology AST 250, ALT 170 Trend LFTs daily acute Hyperbilirubinemia Total bilirubin 1.4 Monitor bilirubin and liver enzymes Evaluate for biliary obstruction if worsens Status post gastric sleeve surgery (3 months ago) Monitor nutritional status Avoid NSAIDs Chronic problems Status post gastric sleeve surgery Z98.84 History of 2 FEN / PPx Fluids: IV normal saline Electrolytes: Monitor CMP Nutrition: NPO DVT Prophylaxis: SCDs; pharmacologic PPx if no contraindications GI Prophylaxis: Pepcid Disposition Admit to medicine service with General Surgery consultation for management of acute cholecystitis. Continue IV fluids, antibiotics, pain control, Plan discussed with: Patient My Orders Orders - CALI WETZEL DNP Procedure Category Date Status Time Admit ADMIT 10/11/25 Transmitted 09:21 Allergies CINDY 10/11/25 In Process 09:21 Code Status CODE 10/11/25 Transmitted 09:21 Sodium Chloride 0.9% PHA 10/11/25 In Process 09:30 Oxygen Per Hour RT 10/11/25 Transmitted 09:21 Temazepam (Restoril) PHA 10/11/25 In Process 09:30 Ondansetron Hcl PHA 10/11/25 In Process (Zofran) 09:30 Docusate Sodium PHA 10/11/25 In Process Capsule (Colace 09:30 Complete Blood Count LAB 10/12/25 Verified 04:00 Comprehensive LAB 10/12/25 Verified Metabolic Panel 04:00 Npo (Nothing By DIET 10/11/25 Transmitted Mouth) Diet Breakfast Condition: Stable CINDY 10/11/25 In Process 09:21 BRP CINDY 10/11/25 In Process 09:21 Sequential CINDY 10/11/25 In Process Compression Device Nitroglycerin PHA 10/11/25 In Process Sublingual (Ntrostat 09:30 Stat Ekg For Chest CINDY 10/11/25 In Process Pain 09:21 Notify Md Of Changes BANNER 10/11/25 In Process From Base 09:21 Certified Nursing Assistant Instructor For BANNER 10/11/25 In Process 24 Hours 09:21 Emergency Dysrhythmia BANNER 10/11/25 In Process Protocol 09:21 Rhythm Strips Once BANNER 10/11/25 In Process Every Shift 09:21 Oxygen By Nasal RT 10/11/25 Transmitted Cannula 09:21 Piperacillin-Tazob PHA 10/11/25 In Process 3.375gm (Zosyn 3.375g 12:00 * Surgical Consult CONS 10/11/25 Transmitted Pantoprazole PHA 10/12/25 In Process (Protonix) 10:00 Morphine Sulfate PHA 10/11/25 In Process Injection 09:45 Date of Service: Oct 11, 2025 Billing Provider: CALI WETZEL DNP Common Visit Codes: [id number] INP/OBS CARE (HIGH) CALI WETZEL DNP Oct 11, 2025 14:21
[2025-10-11 15:10] VITALS: BP 110/56; PULSE 65; RESP 18; TEMP 98.3; O2SAT 97
[2025-10-11 15:52] LABS: INR 1.05 (0.9-1.15); Prothrombin Time 11.1 sec (9.3-11.8)
--- NOTE | 2025-10-11 16:18 | DVH ---
CHEST RADIOGRAPH INDICATION: pre-op TECHNIQUE: Single frontal view of the chest was obtained COMPARISON: None FINDINGS: Lines and Tubes: None Lungs: Clear Pleura: No effusion. No pneumothorax. Cardiomediastinal contours: Unremarkable Bones: Unremarkable IMPRESSION: 1. No acute disease.
[2025-10-11 17:00] VITALS: BP 108/47; PULSE 60; RESP 16; TEMP 97.9; O2SAT 97
[2025-10-11 20:10] VITALS: RESP 18; O2SAT 95
[2025-10-11 21:00] VITALS: BP 107/57; PULSE 73; RESP 16; TEMP 98.2; O2SAT 97
[2025-10-12 01:00] VITALS: BP 105/50; PULSE 64; RESP 14; TEMP 98.1; O2SAT 98
[2025-10-12 05:44] LABS: Hematocrit 35.2 % (36.0-46.0); Hemoglobin 11.5 g/dL (12.2-16.2); Mean Corpuscular Hemoglobin 26.0 pg (28.0-32.0); Mean Corpuscular Volume 80.0 fL (80.0-100.0); Nucleated Red Blood Cells % 0.2 %
[2025-10-12 06:05] LABS: Albumin 3.9 g/dL (3.2-4.8); Anion Gap 11 (5-15); Calcium 9.0 mg/dL (8.7-10.4); Glucose 79 mg/dL (74-106); Potassium 3.9 mmol/L (3.5-5.1); Sodium 141 mmol/L (136-145); Total Protein 6.8 g/dL (5.7-8.2)
[2025-10-12 06:07] LABS: Alanine Aminotransferase 442 U/L (7-40); Alkaline Phosphatase 262 U/L (46-116); BUN/Creatinine Ratio 6.8 (10.0-20.0); Bilirubin, Total 1.7 mg/dL (0.2-1.0); Blood Urea Nitrogen < 5 mg/dL (9-23); Carbon Dioxide 19 mmol/L (20-31); Chloride 111 mmol/L (98-107)
[2025-10-12] MEDS ORDERED: HYDROmorphone HCL 2 MG/ML VL/or syr IV PRN ×2 (07:30)
[2025-10-12] MEDS ORDERED: MORPHINE SULFATE INJ 2 MG/ml SYRG IV PRN (07:30)
[2025-10-12] MEDS ORDERED: METOCLOPRAMIDE HCL 5MG/ml INJ 2ml VIAL IV PRN (07:30)
[2025-10-12] MEDS ORDERED: MORPHINE SULFATE 4 MG/ML SYR/VIAL IV PRN (07:30)
[2025-10-12] MEDS ORDERED: fentaNYL CITRATE 100 MCG/2 ML VL ONE (07:32)
[2025-10-12] MEDS ORDERED: SODIUM CHLORIDE LOCK 10 ML ONE (07:32)
[2025-10-12] MEDS ORDERED: LIDOCAINE HCL 2% TOP JELLY 5ML TOP ONE (07:32)
[2025-10-12] MEDS ORDERED: ONDANSETRON HCL 4 MG/2 ML VIAL ONE (07:32)
[2025-10-12] MEDS ORDERED: PROPOFOL 10 MG/ML 20 ML IV ONE (07:32)
[2025-10-12] MEDS ORDERED: LIDOCAINE 1% INJ PF 5ML AMP ONE (07:32)
[2025-10-12] MEDS ORDERED: MEPERIDINE HCL (25 MG/ML) 1ML VIAL ONE (07:32)
[2025-10-12] MEDS ORDERED: ROCURONIUM 10MG/ML 10ML VIAL IV ONE (07:32)
[2025-10-12] MEDS ORDERED: KETAMINE 50mg/ML 1ml syringe ONE (07:32)
[2025-10-12] MEDS ORDERED: MIDAZOLAM HCL 2MG/2ML 2ml VIAL (1mg/ml) ONE (07:32)
[2025-10-12] MEDS: ceFAZolin 1GM VL ONE (08:20)
[2025-10-12] MEDS: SUCCINYLCHOLINE CHLORIDE 20 MG/ML 10ML VIAL IV ONE (08:21)
[2025-10-12] MEDS: DOXAPRAM HCL 20 MG/ML 20ML VIAL INJ IV ONE (08:21)
[2025-10-12] MEDS: ROCURONIUM 10MG/ML 10ML VIAL IV ONE (08:21)
[2025-10-12] MEDS: PIPERACILLIN-TAZOB 3.375GM 100 ML IV ONE ×2 (08:21→11:50)
[2025-10-12] MEDS: BUPIVACAINE 0.25% INJ 50ML VIAL ONE (08:41)
[2025-10-12 08:52] VITALS: PULSE 89; RESP 15; O2SAT 100
--- NOTE | 2025-10-12 09:34 | DVHOP2 ---
Operative Report - 2 Report Details Date: 10/12/25 Preop Diagnosis: Acute cholecystitis Postop Diagnosis: Same Surgeon: Jose Benton MD Anesthesiologist: Dr. Garcia Anesthesia: General Consent: The patient was informed of the risks and benefits of the procedure. These include but are not limited to complications of anesthesia, postoperative infection, incomplete relief of symptoms, recurrence of symptoms, damage to blood vessels, nerves and tendons, deep venous thrombosis, pulmonary embolism and possible need for repeat surgery in the future. Complications: None Estimated Blood Loss: 5 mL Findings: Acutely inflamed gallbladder with dense omental adhesions to the infundibular area of the gallbladder Indications for Surgery: Acute cholecystitis Name of Procedure Performed Laparoscopic cholecystectomy Procedure Details Procedure Details: Upon arriving to the operating room the patient was transferred to the operating table and placed in the supine position with arms extended. General endotracheal anesthesia was induced. Time-out was observed. Patient was then prepped and draped in the standard sterile surgical fashion with chlorhexidine. I then proceeded to make an infraumbilical curvilinear incision and carried the dissection down to the fascia. Once at the fascia I grasped the umbilical stalk with Luz Marina clamp and walked it down to its base. Once at the base I placed a 2nd Luz Marina clamp immediately below the 1st 1 at the fascia, both Luz Marina were elevated and a transverse incision was made in the fascia, gaining entry into the peritoneal cavity. I then placed a fascial retention stitch of 0 Vicryl in [id number] fashion. I then introduced the Leach cannula into the p eritoneal cavity and insufflated to 15 mmHg with toleration. I then introduced a 10 mm 30 degree laparoscope, surveyed the entry site, no injuries noted. Patient was then placed in the reverse Trendelenburg [id number] position. Three additional 5 mm working ports were placed under direct vision at the epigastric area, right midclavicular subcostal area, and right flank area. Attention was now turned to the liver and gallbladder. The gallbladder fundus was grasped with a grasper and retracted cephalad and towards the right shoulder. There were dense omental adhesions to the infundibular area of the gallbladder. These adhesions were lysed both bluntly and with cautery. Once the infundibulum was exposed, a 2nd grasper was placed at the infundibulum and retracted laterally, thus exposing cholesterol angle. I then proceeded to incise the peritoneum at either side of the gallbladder and carried the dissection down towards the liver. I then fully skeletonized cholesterol angle, until I saw 2 structures entering the gallbladder, cystic duct and cystic artery. Critical view was obtained. The cystic duct was then milked for any s tones, non felt. I then placed 3 proximal 5 mm clips in the duct and 1 distal. I then placed 2 proximal 5 mm clips at the artery and 1 distal. Both the artery and duct were transected. The gallbladder was then removed from the liver with electrocautery, there was a nice edema plane between the liver and gallbladder. Once the gallbladder was completely free from the liver bed, it was placed in the Endo-Catch bag and taken out of the peritoneal cavity through the infraumbilical port site. Attention now turned to the gallbladder fossa, it was completely hemostatic. Then I surveyed the clips they were intact. This concluded the intraperitoneal portion of the operation. The 5 mm ports were taken out under direct vision. The peritoneal cavity was allowed to fully desufflate. Previous fascial retention stitch was closed. All counts were complete and correct at the end of procedure. All skin sites were closed with 4-0 Monocryl and Dermabond. 0.25% Marcaine was used as local anesthetic. Patient tolerated the procedure well and was transferred to PACU in stable condition. Specimen: Gallbladder and contents Condition Stable Disposition Still a Patient JOSE STEWARD MD Oct 12, 2025 09:34
[2025-10-12] MEDS: KETOROLAC TROMETH 30 MG/ML 1ML VIAL IV ONE (09:35)
[2025-10-12] MEDS: PANTOPRAZOLE 40 MG/10 ML VIAL INJ IV SCH (10:27)
[2025-10-12] MEDS: PANTOPRAZOLE 40 MG/10 ML VIAL INJ IV ONE (10:31)
[2025-10-12] MEDS: HYDROcodone-ACET 10/325MG TAB PO PRN (10:42)
[2025-10-12] MEDS: ACETAMINOPHEN 325 MG TAB PO SCH (11:51)
[2025-10-12] MEDS: ONDANSETRON HCL 4 MG/2 ML VIAL IV PRN (12:43)
--- NOTE | 2025-10-12 16:47 | DVHPNRES ---
Progress Note Date Seen: Oct 12, 2025 Resident Creating Document: SHIN CHEN RESIDENT Medical Necessity Reason Pt with a Central, PICC or Fol: No Subjective Review of Systems 40-year-old female with past medical history significant for recent gastric sleeve surgery (performed three months ago) and prior 2, presents with acute right-sided abdominal pain. Patient reports that she had not eaten meat or hot sauce for quite some time following her gastric sleeve but decided to eat both for dinner. Shortly after, she developed sharp, burning right abdominal pain with soreness. She denies vomiting, diarrhea, chest pain, shortness of breath, or tearing sensation in the chest, abdomen, or pelvis. No prior similar episodes reported. In the ED, patient was treated with Pepcid, morphine, normal saline, and Zofran. Laboratory evaluation revealed CBC unremarkable, total bilirubin 1.4, AST 250, ALT 170, and alkaline phosphatase 24. Imaging demonstrated gallstones with pericholecystic fluid, concerning for acute cholecystitis. Ultrasound of the abdomen was ordered. Given clinical presentation, laboratory abnormalities, and imaging findings, acute cholecystitis is suspected. General Surgery (Dr. Ellis) will be consulted. Patient will be kept NPO, started on IV fluids, IV antibiotics, and pain control, and admitted for further management. PMH-none PSH- gastric sleeve surgery (performed three months ago) and prior 2, Allergy- NKDA Personal History/ Social History- gastric sleeve surgery (performed three months ago) and prior 2, ROS Cardiovascular- deny acute chest pain or shortness of breath or cough or palpitation Respiratory denies cough or short of breath or wheezing Musculoskeletal-denies acute joint swelling or tenderness or redness Neurological- denies acute dysarthria, dysphagia, change in vision Psychiatry- denies depression or SI or HI Skin- denies acute rash or purpura Patient was seen today at bedside Labs and chart reviewed Patient status post laparoscopic cholecystectomy Tolerating clear liquid well If patient tolerating diet well plan is to discharge tomorrow Objective vital signs Vital Sign Date Time Temp Pulse Resp B/P (MAP) Pulse Ox O2 Delivery O2 Flow Rate FiO2 10/12/25 16:24 61 18 118/59 (78) 98 10/12/25 09:00 Room Air 0 100 10/12/25 08:52 97.0 97.0 Total Intake and Output 10/11/25 10/11/25 10/12/25 14:59 22:59 06:59 Intake Total 100 ml 500 ml Balance 100 ml 500 ml medications Current Medications Medications Dose Ordered Sig/Sun Route Start Time Stop Time Status Last Admin Dose Admin Sodium Chloride 1,000 ml @ 120 mls/hr Q8H20M IV 10/11/25 09:30 10/12/25 11:43 120 MLS/HR Temazepam 15 mg QHSP PRN PO 10/11/25 09:30 Ondansetron HCl 4 mg Q4HP PRN IV 10/11/25 09:30 10/12/25 12:43 4 MG Docusate Sodium 100 mg BIDPRN PRN PO 10/11/25 09:30 Nitroglycerin 0.4 mg Q5MINP PRN SL 10/11/25 09:30 Piperacillin Sod/ Tazobactam Sod 100 ml @ 25 mls/hr Q6HR IV 10/11/25 12:00 10/12/25 11:44 25 MLS/HR Pantoprazole Sodium 40 mg DAILY IV 10/12/25 10:00 10/12/25 10:27 40 MG Acetaminophen 650 mg Q6HR PO 10/12/25 12:00 Acetaminophen/ Hydrocodone Bitart 1 tab Q4HPRN PRN PO 10/12/25 09:30 Acetaminophen/ Hydrocodone Bitart 1 tab Q4HP PRN PO 10/12/25 09:30 10/12/25 10:42 1 TAB Examination General examination- awake, alert HEENT- PEERLA, no acute nasal discharge Cardiovascular- S1-S2 audible, rate and rhythm regular, no murmur Respiratory- CTAB, no wheeze or rhonchi Gastrointestinal-right abdominal mild tenderness, bowel sound+. Nondistended Musculoskeletal-no acute joint swelling or tenderness or redness Lower extremity- no leg edema Neurological- cranial nerves intact, no acute dysarthria or dysphagia Psychiatry- denies depression or SI or HI Skin- no acute rash or purpura laboratory and microbiology Laboratory Tests 10/12/25 04:34 Test 10/12/25 04:34 Range/Units Serum Glucose 79 74-106 mg/dL Problem List/Assessment/Plan Problem List/Assessment/Plan Assessment and plan # acute calculous cholecystitis # intractable abdominal pain with nausea likely due to above # transaminitis likely due to biliary etiology/above # status post gastric sleeve -status post laparoscopic cholecystectomy -continue current IV antibiotic as prescribed -continue IV fluid as prescribed -monitor vitals -continue current pain management Goals of care, Code status full code ; discussed with >15 minutes PUD prophylaxis: Pantoprazole DVT prophylaxis: Lovenox Plan discussed with Dr. Cartwright , nursing staff, Total time spent on patient evaluation, chart review, assessment and plan, discussion discussion >35 minutes Plan discussed with: Patient, Other (RN) Visit Coding STANDARD RES Billing Provider: THOR MELO MD Date of Service if different f: Oct 12, 2025 Common Visit Codes: [id number] INP/OBS CARE(HIGH) SHIN CHEN RESIDENT Oct 12, 2025 16:47
[2025-10-12 20:00] VITALS: RESP 18; O2SAT 95
[2025-10-12 21:00] VITALS: BP 113/76; PULSE 80; RESP 16; TEMP 98; O2SAT 96
[2025-10-13 01:00] VITALS: BP 117/71; PULSE 78; RESP 16; TEMP 98.1; O2SAT 98
[2025-10-13] MEDS: PIPERACILLIN-TAZOB 3.375GM 100 ML IV SCH (04:24)
[2025-10-13] MEDS: HYDROcodone-ACET 5/325MG TAB PO PRN (04:25)
[2025-10-13 05:00] VITALS: BP 136/81; PULSE 70; RESP 17; TEMP 98.3; O2SAT 97
[2025-10-13] MEDS: ERGOCALCIFEROL 50,000 UNIT(1.25MG) CAP PO SCH (07:26)
[2025-10-13 07:39] LABS: Hematocrit 31.0 % (36.0-46.0); Hemoglobin 10.2 g/dL (12.2-16.2); Mean Corpuscular Hemoglobin 25.7 pg (28.0-32.0); Mean Corpuscular Volume 78.3 fL (80.0-100.0); Nucleated Red Blood Cells % 0.0 %
[2025-10-13 07:52] LABS: Calcium 8.8 mg/dL (8.7-10.4)
[2025-10-13 07:53] LABS: Alanine Aminotransferase 274 U/L (7-40); Albumin 3.7 g/dL (3.2-4.8); Alkaline Phosphatase 231 U/L (46-116); Anion Gap 10 (5-15); BUN/Creatinine Ratio 7.2 (10.0-20.0); Bilirubin, Direct 0.6 mg/dL (<0.3); Bilirubin, Total 1.3 mg/dL (0.2-1.0); Blood Urea Nitrogen 6 mg/dL (9-23); Carbon Dioxide 24 mmol/L (20-31); Chloride 109 mmol/L (98-107); Glucose 82 mg/dL (74-106); Magnesium 1.9 mg/dL (1.6-2.6); Potassium 3.9 mmol/L (3.5-5.1); Sodium 143 mmol/L (136-145); Total Protein 6.1 g/dL (5.7-8.2)
[2025-10-13 08:07] VITALS: RESP 18
[2025-10-13 08:39] VITALS: BP 110/64; PULSE 68; RESP 17; TEMP 98.1; O2SAT 97
--- NOTE | 2025-10-13 11:37 | DVHPN2 ---
Progress Note - Surgical Date Seen: Oct 13, 2025 Post op day Post op day: 1 Subjective Patient reports: Feels better (No abdominal pain complaints tolerating diet) Review of Systems: Deferred Objective Vital signs Vital Sign Date Time Temp Pulse Resp B/P (MAP) Pulse Ox O2 Delivery O2 Flow Rate FiO2 10/13/25 08:39 98.1 68 17 110/64 (79) 97 98.1 10/13/25 08:07 Room Air* 0 21 Total Intake and Output 10/12/25 10/12/25 10/13/25 15:00 23:00 07:00 Intake Total 200 ml 200 ml Balance 200 ml 200 ml Medications Current Medications Medications Dose Ordered Sig/Sun Route Start Time Stop Time Status Last Admin Dose Admin Sodium Chloride 1,000 ml @ 120 mls/hr Q8H20M IV 10/11/25 09:30 10/12/25 18:55 120 MLS/HR Temazepam 15 mg QHSP PRN PO 10/11/25 09:30 Ondansetron HCl 4 mg Q4HP PRN IV 10/11/25 09:30 10/12/25 12:43 4 MG Docusate Sodium 100 mg BIDPRN PRN PO 10/11/25 09:30 Nitroglycerin 0.4 mg Q5MINP PRN SL 10/11/25 09:30 Pantoprazole Sodium 40 mg DAILY IV 10/12/25 10:00 10/12/25 10:27 40 MG Acetaminophen 650 mg Q6HR PO 10/12/25 12:00 10/13/25 06:18 650 MG Acetaminophen/ Hydrocodone Bitart 1 tab Q4HPRN PRN PO 10/12/25 09:30 10/13/25 04:25 1 TAB Acetaminophen/ Hydrocodone Bitart 1 tab Q4HP PRN PO 10/12/25 09:30 10/12/25 10:42 1 TAB Piperacillin Sod/ Tazobactam Sod 100 ml @ 25 mls/hr Q6H IV 10/13/25 04:00 10/13/25 04:24 25 MLS/HR Ergocalciferol 50,000 unit Q7D PO 10/13/25 07:00 10/13/25 07:26 50,000 UNIT Laboratory Laboratory Tests 10/13/25 06:56 Test 10/13/25 06:56 Range/Units Serum Glucose 82 74-106 mg/dL Examination: GENERAL:Normal (AAO x3, resting comfortably in bed), HEENT:Normal (No icterus, neck supple), LUNGS:Normal (Nonlabored breathing with symmetric expansion), ABDOMEN:Normal (Nondistended, soft, depressible, incision sites with overlying skin glue and without surrounding signs of infection, epigastric port with peripheral ecchymosis, appropriate tenderness), SKIN:Normal (No jaundice) Labs and/or images reviewed: Labs reviewed by me (No leukocytosis) Problem List/Assessment/Plan Assessment and Plan Mrs. Chua is a 40-year-old female who presented with acute cholecystitis, and is currently postop day 1 from laparoscopic cholecystectomy. Patient has no complaints after the surgery, tolerating diet, ambulating, with pain well controlled. Patient is cleared for discharge per surgical standpoint. 1. Cleared for discharge 2. Low-fat diet 3. No lifting over 10 lb for 6 weeks 4. May shower, soap and water okay to run over incision sites. No swimming and/or bathing for 2 weeks. 5. For baseline pain control Tylenol and/or ibuprofen, for best results alternate the medication, follow director of radiology's directions. 6. Recommend [place] 5 mg-325 mg 1 tab p.o. PRN breakthrough pain 7. Recommend MiraLax 1 packet daily for 7 days 8. No driving while taking narcotics 9. Follow up with Dr. Ellis at [facility] in 2-3 weeks, please call for appointment. Plan discussed with Plan discussed with: Patient Visit Coding Surgery Date of Service if different f: Oct 13, 2025 Billing Provider: LEONEL STEWARD MD Surgery Visit Codes: [id number] INP/OBS CARE(HIGH) LEONEL STEWARD MD Oct 13, 2025 11:37
[2025-10-13] MEDS ORDERED: PANT40T PO (11:56)
[2025-10-13] MEDS ORDERED: ACE650RS PO (11:56)
[2025-10-13] MEDS ORDERED: AUG875T PO (11:56)
[2025-10-13] MEDS ORDERED: IBUP-1453 PO (11:56)
[2025-10-13 12:40] VITALS: BP 115/71; PULSE 68; RESP 17; TEMP 97.8; O2SAT 99
[2025-10-13] MEDS ORDERED: POLY335015 PO (12:41)
--- NOTE | 2025-10-13 13:48 | DVHDSRES ---
Discharge Summary Date of Admission Resident Creating Document: SHIN CHEN RESIDENT Oct 11, 2025 at 09:21 Date of Discharge: Oct 13, 2025 Admitting Diagnosis Acute calculous cholecystitis Labs/Diagnostic Data: Laboratory Results Test 10/13/25 06:56 10/12/25 04:34 10/11/25 15:22 10/11/25 04:33 White Blood Count 5.1 10^3/uL (4.4-10.8) Red Blood Count 3.96 10^6/uL (4.0-5.20) Hemoglobin 10.2 g/dL (12.2-16.2) Hematocrit 31.0 % (36.0-46.0) Mean Corpuscular Volume 78.3 fL (80.0-100.0) Mean Corpuscular Hemoglobin 25.7 pg (28.0-32.0) Mean Corpuscular Hemoglobin Concent 32.8 g/dL (32.0-36.0) Red Cell Distribution Width 16.0 % (11.8-14.3) Platelet Count 179 10^3/uL (140-450) Mean Platelet Volume 9.4 fL (6.9-10.8) Neutrophils (%) (Auto) 63.4 % (37.0-80.0) Lymphocytes (%) (Auto) 27.9 % (10.0-50.0) Monocytes (%) (Auto) 6.1 % (0.0-12.0) Eosinophils (%) (Auto) 2.1 % (0.0-7.0) Basophils (%) (Auto) 0.5 % (0.0-2.0) Neutrophils # (Auto) 3.2 10 ^3/uL (1.6-8.6) Lymphocytes # (Auto) 1.4 10 ^3/uL (0.4-5.4) Monocytes # (Auto) 0.3 10 ^3/uL (0-1.3) Eosinophils # (Auto) 0.1 10 ^3/uL (0-0.8) Basophils # (Auto) 0 10 ^3/uL (0-0.2) Nucleated Red Blood Cells 0.0 % Sodium Level 143 mmol/L (136-145) Potassium Level 3.9 mmol/L (3.5-5.1) Chloride Level 109 mmol/L (98-107) Carbon Dioxide Level 24 mmol/L (20-31) Anion Gap 10 (5-15) Blood Urea Nitrogen 6 mg/dL (9-23) Creatinine 0.83 mg/dL (0.550-1.02) Glomerular Filtration Rate Calc 92 mL/min (>90) BUN/Creatinine Ratio 7.2 (10.0-20.0) Serum Glucose 82 mg/dL (74-106) Calcium Level 8.8 mg/dL (8.7-10.4) Magnesium Level 1.9 mg/dL (1.6-2.6) Total Bilirubin 1.3 mg/dL (0.2-1.0) Direct Bilirubin 0.6 mg/dL (<0.3) Aspartate Amino Transferase (AST) 100 U/L (13-40) Alanine Aminotransferase (ALT) 274 U/L (7-40) Alkaline Phosphatase 231 U/L (46-116) Total Protein 6.1 g/dL (5.7-8.2) Albumin 3.7 g/dL (3.2-4.8) Hemoglobin A1c 4.6 % A1C (<5.7) Vitamin B12 Level 1004 pg/mL (211-911) Vitamin D 25-Hydroxy 28.7 ng/mL (30.0-100) Folic Acid 22.39 ng/mL (>5.38) Thyroid Stimulating Hormone (TSH) 1.47 uIU/mL (0.55-4.78) Prothrombin Time 11.1 sec (9.3-11.8) Prothrombin Time INR 1.05 (0.9-1.15) Urine Color Yellow (Yellow) Urine Clarity Turbid (Clear) Urine pH 8.0 (5.0-9.0) Urine Specific [place] 1.027 (1.001-1.035) Urine Protein Trace (Negative) Urine Ketones 1+ (Negative) Urine Blood Negative /uL (Negative) Urine Nitrite Negative (Negative) Urine Bilirubin Negative (Negative) Urine Urobilinogen 8 mg/dL (Negative) Urine Leukocyte Esterase Negative /uL (Negative) Urine RBC 1 /hpf (0 - 4) Urine Microscopic WBC < 1 /HPF (0-5) Urine Squamous Epithelial Cells Few /hpf (<5) Urine Amorphous Crystals Few /hpf (None Seen) Urine Bacteria None seen /hpf (None Seen) Urine Mucus Few (None Seen) Urine Yeast (Budding) Moderate /hpf (None Seen) Urine Glucose Normal mg/dL (Normal) Urine Test Negative (Negative) Test 10/11/25 01:56 Lipase 26 U/L (12-53) Other Laboratory Tests 10/13/25 06:56 Brief Hx & Hospital Course: 40-year-old female with past medical history significant for recent gastric sleeve surgery (performed three months ago) and prior 2, presents with acute right-sided abdominal pain. Patient reports that she had not eaten meat or hot sauce for quite some time following her gastric sleeve but decided to eat both for dinner. Shortly after, she developed sharp, burning right abdominal pain with soreness. She denies vomiting, diarrhea, chest pain, shortness of breath, or tearing sensation in the chest, abdomen, or pelvis. No prior similar episodes reported. In the ED, patient was treated with Pepcid, morphine, normal saline, and Zofran. Laboratory evaluation revealed CBC unremarkable, total bilirubin 1.4, AST 250, ALT 170, and alkaline phosphatase 24. Imaging demonstrated gallstones with pericholecystic fluid, concerning for acute cholecystitis. Ultrasound of the abdomen was ordered. Given clinical presentation, laboratory abnormalities, and imaging findings, acute cholecystitis is suspected. General Surgery (Dr. Ellis) will be consulted. Patient will be kept NPO, started on IV fluids, IV antibiotics, and pain control, and admitted for further management. Hospital course-during hospital course patient is seen by surgery, patient had laparoscopic cholecystectomy, status post surgery patient was tolerating diet well, no nausea or vomiting. Patient's pain was well controlled. Patient was cleared by surgery for discharge. Patient is being discharged home with the Augmentin. Patient was advised to follow up at [facility] clinic/PCP/surgery. Patient was advised no heavy lifting for 6 weeks. Patient was hemodynamically stable on discharge. All questions answered. General examination- awake, alert HEENT- PEERLA, no acute nasal discharge Cardiovascular- S1-S2 audible, rate and rhythm regular, no murmur Respiratory- CTAB, no wheeze or rhonchi Gastrointestinal-right abdominal mild tenderness, bowel sound+. Nondistended Musculoskeletal-no acute joint swelling or tenderness or redness Lower extremity- no leg edema Neurological- cranial nerves intact, no acute dysarthria or dysphagia Psychiatry- denies depression or SI or HI Skin- no acute rash or purpura Assessment # acute calculous cholecystitis # status post laparoscopic cholecystectomy starvation ketosis due to above IVVD due to above # intractable abdominal pain with nausea likely due to above # transaminitis likely due to biliary etiology/above hyperbilirubinemia due to above ALP elevated, due to above. # status post gastric sleeve Plan Augmentin 875 mg p.o. b.i.d. for 5 days -pantoprazole 40 mg p.o. daily as prescribed -pain medication as prescribed -follow up at [facility] clinic/PCP/surgeon Dr. Ellis - Low-fat diet -No lifting over 10 lb for 6 weeks - May shower, soap and water okay to run over incision sites. No swimming and/or bathing for 2 weeks. 5- For baseline pain control Tylenol and/or ibuprofen, for best results alternate the medication, follow print production manager's directions. - Recommend Hatchechubbee 5 mg-325 mg 1 tab p.o. PRN breakthrough pain -Recommend MiraLax 1 packet daily for 7 days -No driving while taking narcotics Follow up with Dr. Ellis at surgery Clinic in 2-3 weeks, please call for appointment. Plan of care discussed with Dr. Cartwright Consults/Reason for consult Patient: SUNG PEÑALOZA Acct: [id number] : 1985 Loc: [facility] Age/Sex: 40/F [id number] Progress Note - Surgical Date Seen: Oct 13, 2025 Post op day Post op day: 1 Subjective Patient reports: Feels better (No abdominal pain complaints tolerating diet) Review of Systems: Deferred Objective Vital signs Vital Sign Date Time Temp Pulse Resp B/P (MAP) Pulse Ox O2 Delivery O2 Flow Rate FiO2 10/13/25 08:39 98.1 68 17 110/64 (79) 97 98.1 10/13/25 08:07 Room Air* 0 21 Total Intake and Output 10/12/25 10/12/25 10/13/25 15:00 23:00 07:00 Intake Total 200 ml 200 ml Balance 200 ml 200 ml Medications Current Medications Medications Dose Ordered Sig/Sun Route Start Time Stop Time Status Last Admin Dose Admin Sodium Chloride 1,000 ml @ 120 mls/hr Q8H20M IV 10/11/25 09:30 10/12/25 18:55 120 MLS/HR Temazepam 15 mg QHSP PRN PO 10/11/25 09:30 Ondansetron HCl 4 mg Q4HP PRN IV 10/11/25 09:30 10/12/25 12:43 4 MG Docusate Sodium 100 mg BIDPRN PRN PO 10/11/25 09:30 Nitroglycerin 0.4 mg Q5MINP PRN SL 10/11/25 09:30 Pantoprazole Sodium 40 mg DAILY IV 10/12/25 10:00 10/12/25 10:27 40 MG Acetaminophen 650 mg Q6HR PO 10/12/25 12:00 10/13/25 06:18 650 MG Acetaminophen/ Hydrocodone Bitart 1 tab Q4HPRN PRN PO 10/12/25 09:30 10/13/25 04:25 1 TAB Acetaminophen/ Hydrocodone Bitart 1 tab Q4HP PRN PO 10/12/25 09:30 10/12/25 10:42 1 TAB Piperacillin Sod/ Tazobactam Sod 100 ml @ 25 mls/hr Q6H IV 10/13/25 04:00 10/13/25 04:24 25 MLS/HR Ergocalciferol 50,000 unit Q7D PO 10/13/25 07:00 10/13/25 07:26 50,000 UNIT Laboratory Laboratory Tests 10/13/25 06:56 Test 10/13/25 06:56 Range/Units Serum Glucose 82 74-106 mg/dL Examination: GENERAL:Normal (AAO x3, resting comfortably in bed), HEENT:Normal (No icterus, neck supple), LUNGS:Normal (Nonlabored breathing with symmetric expansion), ABDOMEN:Normal (Nondistended, soft, depressible, incision sites with overlying skin glue and without surrounding signs of infection, epigastric port with peripheral ecchymosis, appropriate tenderness), SKIN:Normal (No jaundice) Labs and/or images reviewed: Labs reviewed by me (No leukocytosis) Problem List/Assessment/Plan Assessment and Plan Mrs. Chua is a 40-year-old female who presented with acute cholecystitis, and is currently postop day 1 from laparoscopic cholecystectomy. Patient has no complaints after the surgery, tolerating diet, ambulating, with pain well controlled. Patient is cleared for discharge per surgical standpoint. 1. Cleared for discharge 2. Low-fat diet 3. No lifting over 10 lb for 6 weeks 4. May shower, soap and water okay to run over incision sites. No swimming and/or bathing for 2 weeks. 5. For baseline pain control Tylenol and/or ibuprofen, for best results alternate the medication, follow print production manager's directions. 6. Recommend Hatchechubbee 5 mg-325 mg 1 tab p.o. PRN breakthrough pain 7. Recommend MiraLax 1 packet daily for 7 days 8. No driving while taking narcotics 9. Follow up with Dr. Ellis at surgery Clinic in 2-3 weeks, please call for appointment. Plan discussed with Plan discussed with: Patient Visit Coding Surgery Date of Service if different f: Oct 13, 2025 Billing Provider: JOSE STEWARD MD Surgery Visit Codes: [id number] INP/OBS CARE(HIGH) JOSE STEWARD MD Oct 13, 2025 11:37 E/M VISIT PERFORMED BY: TRANSCRIBED BY:JOSE STEWARD MD TRANSCRIBED DATE/TIME:10/13/25 1137 ELECTRONICALLY SIGNED BY:JOSE STEWARD MD 10/13/25 1137 ELECTRONICALLY CO-SIGNED BY: Patient: SUNG PEÑALOZA Acct: [id number] : 1985 Loc: [facility] Age/Sex: 40/F [facility] Attending Phy: SHIN CHEN RESIDENT Operative Report - 2 Report Details Date: 10/12/25 Preop Diagnosis: Acute cholecystitis Postop Diagnosis: Same Surgeon: Jose Benton MD Anesthesiologist: Dr. Garcia Anesthesia: General Consent: The patient was informed of the risks and benefits of the procedure. These include but are not limited to complications of anesthesia, postoperative infection, incomplete relief of symptoms, recurrence of symptoms, damage to blood vessels, nerves and tendons, deep venous thrombosis, pulmonary embolism and possible need for repeat surgery in the future. Complications: None Estimated Blood Loss: 5 mL Findings: Acutely inflamed gallbladder with dense omental adhesions to the infundibular area of the gallbladder Indications for Surgery: Acute cholecystitis Name of Procedure Performed Laparoscopic cholecystectomy Procedure Details Procedure Details: Upon arriving to the operating room the patient was transferred to the operating table and placed in the supine position with arms extended. General endotracheal anesthesia was induced. Time-out was observed. Patient was then prepped and draped in the standard sterile surgical fashion with chlorhexidine. I then proceeded to make an infraumbilical curvilinear incision and carried the dissection down to the fascia. Once at the fascia I grasped the umbilical stalk with Luz Marina clamp and walked it down to its base. Once at the base I placed a 2nd Luz Marina clamp immediately below the 1st 1 at the fascia, both Luz Marina were elevated and a transverse incision was made in the fascia, gaining entry into the peritoneal cavity. I then placed a fascial retention stitch of 0 Vicryl in [id number] fashion. I then introduced the Leach cannula into the peritoneal cavity and insufflated to 15 mmHg with toleration. I then introduced a 10 mm 30 degree laparoscope, surveyed the entry site, no injuries noted. Patient was then placed in the reverse Trendelenburg [id number] position. Three additional 5 mm working ports were placed under direct vision at the epigastric area, right midclavicular subcostal area, and right flank area. Attention was now turned to the liver and gallbladder. The gallbladder fundus was grasped with a grasper and retracted cephalad and towards the right shoulder. There were dense omental adhesions to the infundibular area of the gallbladder. These adhesions were lysed both bluntly and with cautery. Once the infundibulum was exposed, a 2nd grasper was placed at the infundibulum and retracted laterally, thus exposing cholesterol angle. I then proceeded to incise the peritoneum at either side of the gallbladder and carried the dissection down towards the liver. I then fully skeletonized cholesterol angle, until I saw 2 structures entering the gallbladder, cystic duct and cystic artery. Critical view was obtained. The cystic duct was then milked for any stones, non felt. I then placed 3 proximal 5 mm clips in the duct and 1 distal. I then placed 2 proximal 5 mm clips at the artery and 1 distal. Both the artery and duct were transected. The gallbladder was then removed from the liver with electrocautery, there was a nice edema plane between the liver and gallbladder. Once the gallbladder was completely free from the liver bed, it was placed in the Endo-Catch bag and taken out of the peritoneal cavity through the infraumbilical port site. Attention now turned to the gallbladder fossa, it was completely hemostatic. Then I surveyed the clips they were intact. This concluded the intraperitoneal portion of the operation. The 5 mm ports were taken out under direct vision. The peritoneal cavity was allowed to fully desufflate. Previous fascial retention stitch was closed. All counts were complete and correct at the end of procedure. All skin sites were closed with 4-0 Monocryl and Dermabond. 0.25% Marcaine was used as local anesthetic. Patient tolerated the procedure well and was transferred to PACU in stable condition. Specimen: Gallbladder and contents Condition Stable Disposition 2 Still a Patient JOSE STEWARD MD Oct 12, 2025 09:34 DICTATED BY:JOSE STEWARD MD DICTATED DATE/TIME:10/12/25 0908 ELECTRONICALLY SIGNED BY:JOSE STEWARD MD 10/12/25 1445 ELECTRONICALLY CO-SIGNED BY: Patient Name: SUNG PEÑALOZA Acct: [id number] Room: [address] [place] [address] /Bed: A Attending Physician: CALI WETZEL DNP Loc: [facility] Unit: [id number] CONSULTATION REPORT . ................................................................................ ............................................................................... Consultation - Surgical Date Seen: Oct 11, 2025 Referring Physician Reason for Consultation Acute cholecystitis History of Present Illness History of Present Illness Mrs. Chua is a 40-year-old female who presents to the hospital with epigastric and right upper quadrant pain that started yesterday at 7:00 p.m.. Pain has continued to get worse and decided to come to the ED, since arrival pain has subsided a bit. Pain is associated with nausea and vomiting. States that this has never happened to her before. Denies fevers, chills, changes in urinary or stooling habits, acholic stools. Past Medical/Surgical History Past Medical/Surgical History PMH cholelithiasis PSH gastric sleeve on July 31, 2025, x2 Family and Social History Family and Social History Family history noncontributory ETOH T Ob drugs denies Allergies and medications Allergies: Coded Allergies: NO KNOWN ALLERGIES (Unverified , 10/13/13) Home Meds Active Scripts Prednisone (PREDNISONE) 20 Mg Tb, 60 MG PO DAILY, #15 TAB Prov:MARIA BARROW N.P. 12/01/13 Albuterol Sulfate (VENTOLIN MDI) 90 Mcg Ih, 2 PUFF IN Q6HP PRN, #1 AER Prov:MARIA BARROW N.P. 12/01/13 Clarithromycin (Biaxin) 500 Mg Tab, 500 MG PO BID, #20 TAB Prov:MARIA BARROW N.P. 12/01/13 Ibuprofen (Ibuprofen) 800 Mg Tab, 800 MG PO Q6HP PRN, #60 MG Prov:MARIA BARROW N.P. 10/13/13 Methylprednisolone (Medrol Dosepak) 4 Mg Giovanni, 4 MG PO UD, #1 PACK Prov:MARIA BARROW N.P. 10/13/13 Pseudoephedrine (Sudafed 12 Hour) 120 Mg Tab, 120 MG PO BID, #30 TAB Prov:MARIA BARROW N.P. 10/13/13 Amoxicillin & Pot Clavulanate (Augmentin) 875 Mg Tab, 875 MG PO BID, #20 TAB Prov:MARIA BARROW N.P. 10/13/13 Reported Medications No Reported Medication (NO REPORTED MEDICATION) Ea, 0 CO UNK, EA PATIENT HAS NO REPORTED MEDICATIONS 12/01/13 Review of systems Review of Systems: Deferred Examination Vital signs Vital Signs Date Time Temp Pulse Resp B/P (MAP) Pulse Ox O2 Delivery O2 Flow Rate FiO2 10/11/25 11:33 98.3 70 18 136/71 (92) 98 98.3 10/11/25 11:33 Room Air* 0 21 Medications Current Medications Medications (Trade) Dose Ordered Sig/Sun Route PRN Reason Start Time Stop Time Status Last Admin Sodium Chloride 1,000 ml @ 120 mls/hr Q8H20M IV 10/11/25 09:30 10/11/25 11:39 Temazepam (Restoril) 15 mg QHSP PRN PO FOR INSOMNIA 10/11/25 09:30 Ondansetron HCl (Zofran) 4 mg Q4HP PRN IV NAUSEA / VOMITING 10/11/25 09:30 Docusate Sodium (Colace Capsule) 100 mg BIDPRN PRN PO FOR CONSTIPATION 10/11/25 09:30 Morphine Sulfate 2 mg Q4HPRN PRN IV SEVERE PAIN (7-10 PAIN SCALE) 10/11/25 09:45 Nitroglycerin (Ntrostat Sublingual) 0.4 mg Q5MINP PRN SL FOR CHEST PAIN 10/11/25 09:30 Piperacillin Sod/ Tazobactam Sod 100 ml @ 25 mls/hr Q6HR IV 10/11/25 12:00 10/11/25 12:32 Pantoprazole Sodium (Protonix) 40 mg DAILY IV 10/12/25 10:00 Laboratory Labs Test 10/11/25 04:33 10/11/25 01:56 Range/Units Urine Color Yellow Yellow Urine Clarity Turbid H Clear Urine pH 8.0 5.0-9.0 Urine Specific [place] 1.027 1.001-1.035 Urine Protein Trace H Negative Urine Ketones 1+ H Negative Urine Blood Negative Negative /uL Urine Nitrite Negative Negative Urine Bilirubin Negative Negative Urine Urobilinogen 8 H Negative mg/dL Urine Leukocyte Esterase Negative Negative /uL Urine RBC 1 0 - 4 /hpf Urine Microscopic WBC < 1 0-5 /HPF Urine Squamous Epithelial Cells Few <5 /hpf Urine Amorphous Crystals Few None Seen /hpf Urine Bacteria None seen None Seen /hpf Urine Mucus Few None Seen Urine Yeast (Budding) Moderate None Seen /hpf Urine Glucose Normal Normal mg/dL Urine Test Negative Negative White Blood Count 8.9 4.4-10.8 10^3/uL Red Blood Count 5.00 4.0-5.20 10^6/uL Hemoglobin 12.7 12.2-16.2 g/dL Hematocrit 39.2 36.0-46.0 % Mean Corpuscular Volume 78.4 L 80.0-100.0 fL Mean Corpuscular Hemoglobin 25.4 L 28.0-32.0 pg Mean Corpuscular Hemoglobin Concent 32.4 32.0-36.0 g/dL Red Cell Distribution Width 16.0 H 11.8-14.3 % Platelet Count 232 140-450 10^3/uL Mean Platelet Volume 9.2 6.9-10.8 fL Neutrophils (%) (Auto) 82.2 H 37.0-80.0 % Lymphocytes (%) (Auto) 13.2 10.0-50.0 % Monocytes (%) (Auto) 4.2 0.0-12.0 % Eosinophils (%) (Auto) 0.2 0.0-7.0 % Basophils (%) (Auto) 0.2 0.0-2.0 % Neutrophils # (Auto) 7.3 1.6-8.6 10 ^3/uL Lymphocytes # (Auto) 1.2 0.4-5.4 10 ^3/uL Monocytes # (Auto) 0.4 0-1.3 10 ^3/uL Eosinophils # (Auto) 0 0-0.8 10 ^3/uL Basophils # (Auto) 0 0-0.2 10 ^3/uL Nucleated Red Blood Cells 0.1 % Sodium Level 140 136-145 mmol/L Potassium Level 3.8 3.5-5.1 mmol/L Chloride Level 108 H 98-107 mmol/L Carbon Dioxide Level 20 20-31 mmol/L Anion Gap 12 5-15 Blood Urea Nitrogen 13 9-23 mg/dL Creatinine 0.73 0.550-1.02 mg/dL Glomerular Filtration Rate Calc 107 >90 mL/min BUN/Creatinine Ratio 17.8 10.0-20.0 Serum Glucose 120 H 74-106 mg/dL Calcium Level 9.6 8.7-10.4 mg/dL Total Bilirubin 1.4 H 0.2-1.0 mg/dL Aspartate Amino Transferase (AST) 250 H 13-40 U/L Alanine Aminotransferase (ALT) 170 H 7-40 U/L Alkaline Phosphatase 234 H 46-116 U/L Total Protein 8.1 5.7-8.2 g/dL Albumin 4.8 3.2-4.8 g/dL Lipase 26 12-53 U/L Examination: GENERAL:Normal (AAO x3), HEENT:Normal (No icterus, neck supple), LUNGS:Normal (Nonlabored breathing with symmetric expansion), ABDOMEN:Abnormal (Large pannus, nondistended, soft, depressible, laparoscopic scars, right upper quadrant tenderness with positive Terry's sign), SKIN:Normal (No jaundice) Problem List/Assessment/Plan Problems: (1) Acute cholecystitis due to biliary calculus Assessment and Plan Mrs. Chua is a 40-year-old female who presents with the acute cholecystitis. CT shows pericholecystic fluid, ultrasound shows multiple stones and gallbladder wall edema. Does not have leukocytosis, but does have transaminitis. Lipase within normal level. Patient will benefit from laparoscopic cholecystectomy. Procedure, risks, benefits, complications, and alternatives discussed with the patient. She would like to proceed with surgery. 1. On-call to OR tomorrow a.m. for laparoscopic cholecystectomy 2. NPO at midnight 3. Zosyn 4. Pain and nausea control Plan discussed with Plan discussed with: Patient Visit Coding Surgery Date of Service if different f: Oct 11, 2025 Billing Provider: JOSE STEWARD MD Surgery Visit Codes: 74105 - INP CONSULT <110 MIN JOSE STEWARD MD Oct 11, 2025 12:57 DICTATED BY:JOSE STEWARD MD DICTATED DATE/TIME:10/11/25 1257 ELECTRONICALLY SIGNED BY:JOSE STEWARD MD 10/11/25 1257 ELECTRONICALLY CO-SIGNED BY: Operations or Procedures [place] [address] Ph: [phone] DIAGNOSTIC IMAGING Diagnostic Imaging Report : [id number] Signed PATIENT: SHARI PEÑALOZACT: [id number] UNIT: [id number] : 1985 LOC: ER ROOM / BED: / AGE / SEX: 40 / F ADM STATUS: REG ER SERVICE 0144 ORDERING PHYSICIAN: AL BISHOP MD PROCEDURE(s): ABPLIV - CT AB PEL WITH IV CON ONLY REASON: abd pain ORDER NUMBER(s): [id number], ACCESSION NUMBER(s): [id number] EXAM: CT CT AB PEL WITH IV CON ONLY History: abd pain COMPARISON: None TECHNIQUE: Multidetector spiral CT of the abdomen and pelvis was performed from lung bases to pubic symphysis. Intravenous contrast was administered during this examination. Portal venous imaging was obtained. Axial, coronal and sagittal multiplanar reformats were performed by the technologist on a separate workstation. Radiation Dose : 1. Abdomen/Pelvis: CTDIvol 26.21mGy, DLP 1625.37 mGy*cm. CONTRAST: Type of contrast: Omnipaque Contrast injected: 100ml FINDINGS: Lung Bases: No acute or significant lung base finding. Normal heart size. No pleural or pericardial effusion. Liver: Hepatomegaly measuring up to 21 cm. Gallbladder and Biliary Tree: Cholelithiasis with small amount of pericholecystic fluid. Spleen: Unremarkable Pancreas: The pancreas is normal in appearance without focal lesions or abnormal enhancement. Adrenal Glands: Unremarkable Kidneys: No hydronephrosis. Bladder: Unremarkable Bowel: Postsurgical changes are seen around the stomach. Small bowel and colon are normal in caliber and distribution. Normal appendix is visualized in the right lower quadrant without findings of appendicitis. Ascites: Absent Lymphadenopathy: No mesenteric, retroperitoneal or periportal lymphadenopathy. Abdominal Wall and Mesentery: Trace fat containing umbilical hernia. Vasculature: The visualized abdominal aorta is normal in size and caliber. Abdominal and pelvic vessels demonstrate normal enhancement. Pelvic Organs: Unremarkable Musculoskeletal: No aggressive focal bony lesions, acute fractures or dislocation. IMPRESSION: 1. Cholelithiasis with small amount of pericholecystic fluid. Recommend correlation with right upper quadrant ultrasound. 2. Postsurgical changes are seen around the stomach. Radiation optimization: All CT scans at this facility use at least one of these dose optimization techniques: automated exposure control mA and/or kV adjustment per patient size (includes targeted exams where dose is matched to clinical indication) or iterative reconstruction. ATED BY: DANIEL PENG MD DICTATED DATE/TIME: 10/11/25708 SIGNED BY: DANIEL PENG MD SIGNED DATE/TIME: 10/11/25708 CC: [place] [address] Ph: [phone] DIAGNOSTIC IMAGING Diagnostic Imaging Report : [id number] Signed PATIENT: SHARI PEÑALOZACT: [id number] UNIT: [id number] : 1985 LOC: ER ROOM / BED: / AGE / SEX: 40 / F ADM STATUS: REG ER SERVICE 0557 ORDERING PHYSICIAN: AL BISHOP MD PROCEDURE(s): GBUS - GALLBLADDER REASON: RUQ pain ORDER NUMBER(s): [id number], ACCESSION NUMBER(s): [id number] EXAM: US GALLBLADDER HISTORY: RUQ pain COMPARISON: None TECHNIQUE: Multiple longitudinal and transverse sonographic images of the abdomen were obtained. Doppler was applied as indicated. FINDINGS: [PANCREAS]: The visualized portions of the pancreas are unremarkable. [AORTA]: Normal [LIVER]: 16.6 cm. increased echogenicity. There is no focal hepatic mass lesion detected. [GALLBLADDER]: Gallbladder wall measures 1.1 cm. There is no gallbladder sludge or shadowing gallstone. There is no sonographic Terry sign. [BILIARY TREE]: Common bile duct not well visualized. no intrahepatic biliary ductal dilatation. [ASCITES]: No free fluid is demonstrated. [VESSELS]: The main portal vein is patent on color Doppler evaluation. The inferior vena cava is patent on color Doppler evaluation. [RIGHT KIDNEY]: 10.6 cm. normal cortical echogenicity and normal contour. No hydronephrosis. IMPRESSION: 1. Heterogeneously echogenic liver, which is a nonspecific finding and may represent hepatic steatosis and/or other underlying hepatocellular pathology. 2. Edematous gallbladder wall thickening with intramural wall edema of indeterminate etiology. Consider follow up CT for further evaluation. ATED BY: AGUS LUTZ MD DICTATED DATE/TIME: 10/11/25839 SIGNED BY: AGUS LUTZ MD SIGNED DATE/TIME: 10/11/25839 CC: [place] [id number] Ph: [phone] DIAGNOSTIC IMAGING Diagnostic Imaging Report : [id number] Signed PATIENT: SHARI PEÑALOZACT: [id number] UNIT: [id number] : 1985 [facility]GE / SEX: 40 / F ADM STATUS: ADM IN SERVICE [id number] ORDERING PHYSICIAN: AMADOU PEREZ MD PROCEDURE(s): CXRP - CHEST PORTABLE REASON: pre-op ORDER NUMBER(s): [id number], ACCESSION NUMBER(s): [id number] CHEST RADIOGRAPH INDICATION: pre-op TECHNIQUE: Single frontal view of the chest was obtained COMPARISON: None FINDINGS: Lines and Tubes: None Lungs: Clear Pleura: No effusion. No pneumothorax. Cardiomediastinal contours: Unremarkable Bones: Unremarkable IMPRESSION: 1. No acute disease. ATED BY: KYLEE DICK MD DICTATED DATE/TIME: 10/11/251615 SIGNED BY: KYLEE DICK MD SIGNED DATE/TIME: 10/11/251615 CC: Condition at Discharge: Stable Final Diagnosis/Problems List # acute calculous cholecystitis # status post laparoscopic cholecystectomy starvation ketosis due to above IVVD due to above # intractable abdominal pain with nausea likely due to above # transaminitis likely due to biliary etiology/above hyperbilirubinemia due to above ALP elevated, due to above. # status post gastric sleeve Discharge Disposition: Home Discharge Instruct/Medications Diet: See Comment Diet comment: Low-fat diet Activity: Light activity Activity comment: NO HEAVY LIFTING FOR NEXT 6 WEEKS Follow Up/Referral: [facility] PCP SURGEON Scheduled Amoxicillin & Pot Clavulanate (Augmentin), 875 MG PO BID Amoxicillin & Pot Clavulanate (Augmentin Tablet), 875 MG PO BID Clarithromycin (Biaxin), 500 MG PO BID Ibuprofen (Ibuprofen), 1 TAB PO Q6HPRN Methylprednisolone (Medrol Dosepak), 4 MG PO UD No Reported Medication (No Reported Medication), 0 CO UNK, (Reported) Pantoprazole Sodium Sesquihydr (Pantoprazole Sodium), 40 MG PO DAILY Polyethylene Glycol 3350 (Miralax), 17 GM PO DAILY Prednisone (Prednisone), 60 MG PO DAILY Pseudoephedrine (Sudafed 12 Hour), 120 MG PO BID Scheduled PRN Acetaminophen (Tylenol), 650 MG PO Q6HP PRN Albuterol Sulfate (Ventolin Mdi), 2 PUFF IN Q6HP PRN Ibuprofen (Ibuprofen), 800 MG PO Q6HP PRN Discharge Statement: "Patient was advised to return to the ER or call 911 if any headaches, dizziness, shortness of breath, chest pain, abdominal pain, bleeding, fevers, or worsening of medical condition. Patient was counseled about treatment plan, medications, possible side effects, patientverbalized understanding. All questions were answered to the best of my ability. This discharge took greater then 30 minutes in planning, reviewing documentation, counseling the patient, and discussing with other team members." ASSESSMENT ASSESSMENT Assessment # acute calculous cholecystitis # status post laparoscopic cholecystectomy starvation ketosis due to above IVVD due to above # intractable abdominal pain with nausea likely due to above # transaminitis likely due to biliary etiology/above hyperbilirubinemia due to above ALP elevated, due to above. # status post gastric sleeve Visit Coding STANDARD RES Billing Provider: THOR MELO MD Date of Service if different f: Oct 13, 2025 Common Visit Codes: 62806-AHO/OBS DISCH DAY >30min SHIN CHEN RESIDENT Oct 13, 2025 13:48 THOR MELO MD Oct 18, 2025 20:26
== END 2025-10-13 15:27 | disposition home or self-care (01) | DRG 263 ==
LOC: EDUNIT# 01:22 → EDBD 01:22 → ER 01:22 → OVERFLOW 09:21 → WEST WING 10-12 17:01
PROVIDERS: ADMIT Student in an Organized Health Care Education/Training Program; ATTEND Student in an Organized Health Care Education/Training Program
PROC: 0DNU4ZZ Release Omentum, Percutaneous Endoscopic Approach (ICD-10-PCS; 2025-10-12)
PROC: 0FT44ZZ Resection of Gallbladder, Percutaneous Endoscopic Approach (ICD-10-PCS; principal; 2025-10-12 07:33)
DX: K80.00 Calculus of gallbladder with acute cholecystitis without obstruction (principal); R71.0 Precipitous drop in hematocrit; E80.6 Other disorders of bilirubin metabolism; R74.01 Elevation of levels of liver transaminase levels; K66.0 Peritoneal adhesions (postprocedural) (postinfection); Z98.84 Bariatric surgery status; Z98.891 History of uterine scar from previous surgery
CPT/HCPCS: 36415; 71045; 74177; 76705; 80053; 81001; 81025; 82248; 82306; 82607; 82746; 83036; 83690; 83735; 84443; 85025; 85610; 86850; 86900; 86901; 96361; 96374; 96375; 99291; G0378; J0330; J0690; J0694; J1885; J2250; J2405; J2470; J2543; J2704; J3490